=== PATIENT | female | born 1960 ===

== ENCOUNTER 2017-10-09 21:44 | Emergency (ER) | payer MEDICARE, OTHER ==
[2017-10-09 21:55] VITALS: BP 120/83; PULSE 97; RESP 18; TEMP 98.1; O2SAT 99
--- NOTE | 2017-10-09 22:48 | ED PDOC ---
Arrival/HPI - General Chief Complaint: Cough, Cold, Congestion Time Seen by Provider: 10/09/17 22:37 Historian: Patient - History of Present Illness Narrative History of Present Illness (Text): 10/09/17 22:43 Fabi Lua is a 57 year old female who presents to the Emergency department complaining of a persistent cough for the past 2 weeks. Patient was seen by her PMD for similar complaint, placed on Promethazine/Codeine cough syrup, and a Z-teddy, which she finished today. Patient states today she has been experiencing vomiting after coughing. Patient states she did not receive an influenza vaccine this year. Patient denies any fever, chills, wheezing, chest pain, shortness of breath, diarrhea, neck pain, headache, dizziness, or any other complaints. Symptom Onset: Gradual Symptom Course: Unchanged Activities at Onset: Light Context: Home Past Medical History - Provider Review Nursing Documentation Reviewed: Yes - Reproductive Menopause: Yes - Endocrine/Metabolic Hx Endocrine Disorders: Yes Hx Diabetes Mellitus Type 2: Yes - Musculoskeletal/Rheumatological Hx Musculoskeletal Disorders: Yes Hx Rheumatoid Arthritis: Yes - Psychiatric Hx Substance Use: No Family/Social History - Physician Review Nursing Documentation Reviewed: Yes Family/Social History: Unknown Family HX Smoking Status: Never Smoked Hx Alcohol Use: No Hx Substance Use: No Allergies/Home Meds Allergies/Adverse Reactions: Allergies No Known Allergies Allergy (Verified 10/09/17 21:50) Home Medications: Home Meds Medication Instructions Recorded Confirmed Azithromycin [Zithromax] 250 mg PO DAILY 10/09/17 10/09/17 Escitalopram [Lexapro] 20 mg PO DAILY 10/09/17 10/09/17 Promethazine/Codeine 10 ml PO Q8H PRN 10/09/17 10/09/17 [Codeine/Promethazine 10 MG/5 Ml-6.25 MG/5 Ml] metFORMIN [glucOPHAGE] 500 mg PO BID 10/09/17 10/09/17 Review of Systems - Physician Review All systems were reviewed & negative as marked: Yes - Review of Systems Constitutional: Normal. absent: Fevers Eyes: Normal ENT: Normal Respiratory: Cough, Sputum Cardiovascular: Normal. absent: Chest Pain Gastrointestinal: Vomiting. absent: Abdominal Pain, Diarrhea, Nausea Genitourinary Female: Normal. absent: Dysuria, Frequency, Hematuria, Urine Output Changes Musculoskeletal: Normal. absent: Back Pain, Neck Pain Skin: Normal. absent: Rash Neurological: Normal. absent: Headache, Dizziness Endocrine: Normal Hemo/Lymphatic: Normal Psychiatric: Normal Physical Exam Vital Signs Reviewed: Yes Vital Signs Temp Pulse Resp BP Pulse Ox 10/09/17 21:52 98.1 F 97 H 18 120/83 99 Temperature: Afebrile Blood Pressure: Normal Pulse: Regular Respiratory Rate: Normal Appearance: Positive for: Well-Appearing, Non-Toxic, Comfortable Pain Distress: None Mental Status: Positive for: Alert and Oriented X 3 - Systems Exam Head: Present: Atraumatic, Normocephalic Pupils: Present: PERRL Extroacular Muscles: Present: EOMI Conjunctiva: Present: Normal Ears: Present: Normal, NORMAL TM, Normal Canal. No: Erythema, TM Bulging, Fluid , TM Perf Mouth: Present: Moist Mucous Membranes Pharnyx: Present: Normal. No: ERYTHEMA, EXUDATE, TONSILS ENLARGED, Peritonsilar Swelling, Uvular Deviation, Muffled/Hoarse Voice, Strider, Soft Palate/Uvular Edema Nose (External): Present: Atraumatic Nose (Internal): Present: Normal Inspection Neck: Present: Normal Range of Motion. No: Meningeal Signs, MIDLINE TENDERNESS , Paraspinal Tenderness Respiratory/Chest: Present: Clear to Auscultation, Good Air Exchange. No: Respiratory Distress, Accessory Muscle Use Cardiovascular: Present: Regular Rate and Rhythm, Normal S1, S2. No: Murmurs Abdomen: Present: Normal Bowel Sounds. No: Tenderness, Distention, Peritoneal Signs Back: Present: Normal Inspection. No: CVA Tenderness, Midline Tenderness, Paraspinal Tenderness Upper Extremity: Present: Normal Inspection. No: Cyanosis, Edema Lower Extremity: Present: Normal Inspection. No: Edema Neurological: Present: GCS=15, CN II-XII Intact, Speech Normal Skin: Present: Warm, Dry, Normal Color. No: Rashes Psychiatric: Present: Alert, Oriented x 3, Normal Insight, Normal Concentration Medical Decision Making ED Course and Treatment: 10/09/17 22:43 Impression: 57 year old female complaining of cough for 2 weeks, vomiting after coughing today. Differential Diagnosis included but are not limited to: bronchitis vs. influenza vs. viral syndrome Plan: -- Chest X-ray -- Rapid influenza -- Reassess and disposition Progress Notes: 10/09/17 23:15 Chest X-ray reviewed, shows no acute processes. 10/10/17 00:38 On re-evaluation, patient feels better and is in no acute distress. I have discussed the results and plan with the patient, who expresses understanding. Patient in agreement with plan to be discharged home. Patient is stable for discharge. Patient was instructed to follow up with physician or return if symptoms worsen or new concerning symptoms arise. - Lab Interpretations Lab Results: Lab Results 10/09/17 23:00: Influenza Typ A,B (EIA) Negative for flu a/b I have reviewed the lab results: Yes - RAD Interpretation Radiology Orders: 10/09/17 22:50 CHEST TWO VIEWS (PA/LAT) [RAD] Stat Sales Representative Facility Services: ED Physician - Scribe Statement The provider has reviewed the documentation as recorded by the Fabrizio Ramires Provider Scribe Attestation: All medical record entries made by the Scribe were at my direction and personally dictated by me. I have reviewed the chart and agree that the record accurately reflects my personal performance of the history, physical exam, medical decision making, and the department course for this patient. I have also personally directed, reviewed, and agree with the discharge instructions and disposition. Disposition/Present on Arrival - Present on Arrival Any Indicators Present on Arrival: No History of DVT/PE: No History of Uncontrolled Diabetes: No Urinary Catheter: No History of Decub. Ulcer: No History Surgical Site Infection Following: None - Disposition Have Diagnosis and Disposition been Completed?: Yes Diagnosis: Bronchitis Disposition: HOME/ ROUTINE Disposition Time: 00:34 Patient Plan: Discharge Patient Problems: Current Active Problems Problem Status Onset Bronchitis Acute Condition: GOOD Discharge Instructions (ExitCare): Acute Bronchitis (ED) Additional Instructions: Stop prometh./codeine meds/take meds as prescribed/drink plenty of liquids/ follow up with your doctor this week Prescriptions: Amoxicillin/Clavulanate [Augmentin 875 MG-125 MG] 1 tab PO BID #14 tab Benzonatate [Tessalon Perles] 100 mg PO TID PRN #[id number] PRN Reason: Cough Referrals: [employer] Avelar Renoam, [Primary Care Provider] - Follow up with primary Forms: [facility] ([place])
--- NOTE | 2017-10-10 10:45 | RAD ---
HISTORY: cough COMPARISON: No prior. TECHNIQUE: Chest PA and lateral FINDINGS: LUNGS: Coarsened/ increased interstitial markings with few scattered peribronchial cuffing changes which appears somewhat more confluent in the right mid to lower lung field. Changes likely represent sequela of reactive/ inflammatory airway disease however developing right lower lobe infiltrate should be excluded with followup radiographs. Keymust be excluded with followup radiographs. PLEURA: No significant pleural effusion identified. No pneumothorax apparent. CARDIOVASCULAR: Normal. OSSEOUS STRUCTURES: No significant abnormalities. VISUALIZED UPPER ABDOMEN: Normal. OTHER FINDINGS: None. IMPRESSION: arsened/ increased interstitial markings with few scattered peribronchial cuffing changes which appears somewhat more confluent in the right mid to lower lung field. Changes likely represent sequela of reactive/ inflammatory airway disease however developing right lower lobe infiltrate should be excluded with followup radiographs. Keymust be excluded with followup radiographs. . Note that this report was placed in PA review folder for followup.
== END 2017-10-10 00:48 | disposition home or self-care (01) ==
LOC: MERGE 21:44 → ED 21:44
DX: J40 Bronchitis, not specified as acute or chronic (principal); E11.9 Type 2 diabetes mellitus without complications; M06.9 Rheumatoid arthritis, unspecified

== ENCOUNTER 2017-10-11 12:20 | Inpatient (IN) | payer MEDICARE, OTHER ==
[2017-10-11] MEDS ORDERED: Sodium Chloride 0.9% 1,000 ML IV STA ×2 (13:05→16:49)
[2017-10-11] MEDS ORDERED: Famotidine 20mg/50ml 20 MG/50 ML BAG IVPB STA (13:06)
--- NOTE | 2017-10-11 13:09 | ED PDOC ---
Arrival/HPI - General Chief Complaint: Flu-like Symptoms Time Seen by Provider: 10/11/17 13:02 Historian: Patient - History of Present Illness Narrative History of Present Illness (Text): 10/11/17 13:09 This 57 yo female with pmh anxiety, and DM 2 , presents to this Ed c/o cough x 14 days. Patient stated her symptoms worsen within last 3 days. Patient noted CP, chills, sore throat, TRISTAN last 2 days. Patient denies recent trauma, recent travel, sick contact, skin rash, or dizziness. Time/Duration: Other (2 weeks) Context: Home Past Medical History - Provider Review Nursing Documentation Reviewed: Yes - Cardiac Hx Cardiac Disorders: No - Pulmonary Hx Respiratory Disorders: No - Neurological Hx Neurological Disorder: No - HEENT Hx HEENT Disorder: No - Renal Hx Renal Disorder: No - Endocrine/Metabolic Hx Endocrine Disorders: Yes Hx Diabetes Mellitus Type 2: Yes - Hematological/Oncological Hx Blood Disorders: No - Integumentary Hx Dermatological Disorder: No - Musculoskeletal/Rheumatological Hx Musculoskeletal Disorders: Yes Hx Rheumatoid Arthritis: Yes - Gastrointestinal Hx Gastrointestinal Disorders: No - Genitourinary/Gynecological Hx Genitourinary Disorders: No - Psychiatric Hx Psychophysiologic Disorder: Yes Hx Anxiety: Yes Hx Substance Use: No - Surgical History Hx Tubal Ligation: Yes - Anesthesia Hx Anesthesia: Yes Hx Anesthesia Reactions: No Hx Malignant Hyperthermia: No - Suicidal Assessment Feels Threatened In Home Enviroment: No Family/Social History - Physician Review Nursing Documentation Reviewed: Yes Family/Social History: Other (noncontributory) Smoking Status: Never Smoked Hx Alcohol Use: No Hx Substance Use: No Allergies/Home Meds Allergies/Adverse Reactions: Allergies No Known Allergies Allergy (Verified 10/11/17 12:23) Home Medications: Home Meds Medication Instructions Recorded Confirmed metFORMIN [glucOPHAGE] 500 mg PO BID 10/09/17 10/11/17 Review of Systems - Review of Systems Constitutional: Other ((+) chills). absent: Fatigue, Weight Change, Fevers Eyes: Normal. absent: Photophobia ENT: Normal Respiratory: Cough. absent: SOB, Wheezing Cardiovascular: Chest Pain. absent: Palpitations, Edema, Calf Pain, PADRON, Orthopnea Gastrointestinal: Normal. absent: Abdominal Pain, Nausea, Vomiting Genitourinary Female: Normal. absent: Dysuria, Frequency, Hematuria Musculoskeletal: Normal Skin: Normal Neurological: Normal. absent: Headache, Dizziness, Focal Weakness, Gait Changes , Speech Changes, Facial Droop, Disequilibrium Endocrine: Normal Hemo/Lymphatic: Normal Psychiatric: Normal Physical Exam Vital Signs Temp Pulse Resp BP Pulse Ox 10/11/17 15:37 99.2 F 113 H 18 133/75 100 10/11/17 12:27 99.9 F H 128 H 18 135/89 100 Temperature: Febrile Blood Pressure: Normal Pulse: Tachycardic Respiratory Rate: Normal Appearance: Positive for: Well-Appearing, Non-Toxic, Comfortable Pain Distress: None Mental Status: Positive for: Alert and Oriented X 3 - Systems Exam Head: Present: Atraumatic, Normocephalic Pupils: Present: PERRL Extroacular Muscles: Present: EOMI Conjunctiva: Present: Normal Mouth: Present: Moist Mucous Membranes Neck: Present: Normal Range of Motion Respiratory/Chest: Present: Clear to Auscultation, Good Air Exchange. No: Respiratory Distress, Accessory Muscle Use, Wheezes, Rales, Retracting, Rhonchi Cardiovascular: Present: Regular Rate and Rhythm, Normal S1, S2. No: Murmurs Abdomen: Present: Normal Bowel Sounds. No: Tenderness, Distention, Peritoneal Signs, Rebound, Guarding Back: Present: Normal Inspection. No: CVA Tenderness Upper Extremity: Present: Normal Inspection, Normal ROM, NORMAL PULSES, Neurovascularly Intact, Capillary Refill < 2s. No: Cyanosis, Edema Lower Extremity: Present: Normal Inspection, Normal ROM, Capillary Refill < 2 s. No: Edema Neurological: Present: GCS=15, CN II-XII Intact, Speech Normal Skin: Present: Warm, Dry, Normal Color. No: Rashes Psychiatric: Present: Alert, Oriented x 3, Normal Insight, Normal Concentration Medical Decision Making ED Course and Treatment: 10/11/17 16:[address] Kris Polk who agrees reviewed labs, cxr, VS, and he agrees with plan for admission. Patient also agreed with admission Re-evaluation Time: 16:37 Reassessment Condition: Re-examined, Improving,but remains with symptoms - Lab Interpretations Lab Results: 10/11/17 14:45 10/11/17 14:45 Lab Results 10/11/17 16:43: pO2 76 H, VBG pH 7.40, VBG pCO2 41.0, VBG HCO3 25.4, VBG Total CO2 26.7, VBG O2 Sat (Calc) 97.8 H, VBG Base Excess 0.5, VBG Potassium 3.7, Glucose 131 H, Lactate 0.8, FiO2 21.0, Sodium 135.0, Chloride 104.0, Venous Blood Potassium 3.7 10/11/17 15:48: Influenza Typ A,B (EIA) Negative for flu a/b 10/11/17 14:45: Sodium 135, Potassium 4.0, Chloride 96 L, Carbon Dioxide 27, Anion Gap 16, BUN 10, Creatinine 0.6 L, Est GFR ( Amer) > 60, Est GFR ( Non-Af Amer) > 60, Random Glucose 144 H, Calcium 10.2, Magnesium 1.8, Total Bilirubin 0.8, AST 25, ALT 32, Alkaline Phosphatase 96, Lactate Dehydrogenase 426, Total Creatine Kinase 148, Troponin I < 0.01, NT-Pro-B Natriuret Pep 103, Total Protein 8.2, Albumin 4.3, Globulin 3.9, Albumin/Globulin Ratio 1.1 10/11/17 14:45: PT 13.7 H, INR 1.20 H, APTT 32.1 10/11/17 14:45: WBC 3.5 L, RBC 4.79, Hgb 13.7, Hct 41.3, MCV 86.2, MCH 28.6, MCHC 33.2, RDW 14.0, Plt Count 195, MPV 10.9, Gran % 65.8, Lymph % (Auto) 21.5 L , [place] % (Auto) 10.7 H, Eos % (Auto) 1.7, Baso % (Auto) 0.3, Gran # 2.33, Lymph # 0.8 L, [place] # 0.4, Eos # 0.1, Baso # 0.01 10/11/17 14:30: Urine Color Yellow, Urine Appearance Clear, Urine pH 7.0, Ur Specific [place] 1.020, Urine Protein Negative, Urine Glucose (UA) Negative, Urine Ketones 40 H, Urine Blood Negative, Urine Nitrate Negative, Urine Bilirubin Negative, Urine Urobilinogen 1.0 H, Ur Leukocyte Esterase Trace H, Urine RBC 0 - 2, Urine WBC 5 - 10, Ur Epithelial Cells 3 - 4, Urine Bacteria Many I have reviewed the lab results: Yes Interpretation: Abnormal lab values - RAD Interpretation Narrative RAD Interpretations (Text): 10/11/17 16:44 Chest x-rays: (+) RLL infiltrates Radiology Orders: 10/11/17 13:04 CHEST PORTABLE [RAD] Stat - EKG Interpretation Interpreted by ED Physician: Yes (Sinus Tachycardia @ 114 bpm. LBBB) Type: 12 lead EKG Comparison: No previous EKG avail. - Medication Orders Current Medication Orders: Sodium Chloride (Sodium Chloride 0.9%) 1,000 mls @ 999 mls/hr IV .Q1H1M STA Stop: 10/11/17 17:49 Discontinued Medications Acetaminophen (Tylenol 325mg Tab) 975 mg PO STAT STA Stop: 10/11/17 13:10 Last Admin: 10/11/17 14:56 Dose: 975 mg Famotidine (Pepcid 20mg/50ml Premix) 20 mg in 50 mls @ 100 mls/hr IVPB STAT STA Stop: 10/11/17 13:35 Last Admin: 10/11/17 14:56 Dose: 100 mls/hr eMAR Start Stop Document 10/11/17 14:56 HI (Rec: 10/11/17 14:56 HI [id number]) Intravenous Solution Start Date 10/11/17 Start Time 14:56 Sodium Chloride (Sodium Chloride 0.9%) 1,000 mls @ 999 mls/hr IV .Q1H1M STA Stop: 10/11/17 14:05 Last Admin: 10/11/17 14:56 Dose: 999 mls/hr eMAR Start Stop Document 10/11/17 14:56 HI (Rec: 10/11/17 14:56 HI [id number]) Intravenous Solution Start Date 10/11/17 Start Time 14:56 Ceftriaxone Sodium (Rocephin 1 Gram Ivpb) 1 gm in 100 mls @ 200 mls/hr IVPB STAT STA PRN Reason: Protocol Stop: 10/11/17 13:58 Last Admin: 10/11/17 14:55 Dose: 200 mls/hr eMAR Start Stop Document 10/11/17 14:55 HI (Rec: 10/11/17 14:55 [id number] Intravenous Solution Start Date 10/11/17 Start Time 14:55 Azithromycin (Zithromax 500mg In Ns) 500 mg in 250 mls @ 167 mls/hr IVPB STAT STA PRN Reason: Protocol Stop: 10/11/17 14:59 Ketorolac Tromethamine (Toradol) 15 mg IVP STAT STA Stop: 10/11/17 13:06 Last Admin: 10/11/17 14:55 Dose: 15 mg MAR Pain Assessment Document 10/11/17 14:55 HI (Rec: 10/11/17 14:55 [id number][facility] Pain Reassessment Is this a pain reassessment? No Location Pain Location Body Site Generalized IVP Administration Document 10/11/17 14:55 HI (Rec: 10/11/17 14:55 [id number][facility] Charges for Administration # of IVP Administrations 1 Disposition/Present on Arrival - Present on Arrival Any Indicators Present on Arrival: No History of DVT/PE: No History of Uncontrolled Diabetes: Yes Urinary Catheter: No History of Decub. Ulcer: No History Surgical Site Infection Following: None - Disposition Have Diagnosis and Disposition been Completed?: Yes Diagnosis: Pneumonia, Cystitis, Chest pain Disposition: HOSPITALIZED Disposition Time: 16:46 Patient Plan: Admission Patient Problems: Current Active Problems Problem Status Onset Pneumonia Acute Cystitis Acute Condition: STABLE Discharge Instructions (ExitCare): Chest Pain (ED) Referrals: Giancarlo Choi MD [Primary Care Provider] - Follow up with primary Forms: [employer] ([place])
[2017-10-11] MEDS ORDERED: cefTRIAXone 1 gm 1 GM/100 ML BAG IVPB STA (13:29)
[2017-10-11] MEDS ORDERED: Azithromycin 500MG/NS 250ml 500 MG/250 ML BAG IVPB STA (13:30)
[2017-10-11 14:38] LABS: URINE BILIRUBIN NEGATIVE (NEGATIVE); URINE BLOOD NEGATIVE (NEGATIVE); URINE GLUCOSE (UA) NEGATIVE (NEGATIVE); URINE LEUKOCYTE ESTERASE TRACE Leu/uL (NEGATIVE); URINE NITRATE NEGATIVE (NEGATIVE); URINE PROTEIN NEGATIVE mg/dL (<30 mg/dL)
[2017-10-11 14:41] LABS: URINE APPEARANCE CLEAR (CLEAR); URINE COLOR YELLOW (YELLOW)
[2017-10-11 14:47] LABS: URINE BACTERIA MANY (NEG); URINE RBC 0 - 2 /hpf (0-2)
[2017-10-11 15:14] LABS: BASO # 0.01 K/mm3 (0.0-2.0); BASO % 0.3 % (0.0-3.0); EOS # 0.1 (0.0-0.7); EOS % 1.7 % (1.5-5.0); GRAN # 2.33 (1.4-6.5); GRAN % 65.8 % (50.0-68.0); HEMOGLOBIN 13.7 g/dL (12.0-16.0); LYMPH # 0.8 (1.2-3.4); LYMPH % 21.5 % (22.0-35.0); MEAN CELL VOLUME 86.2 fl (80.0-105.0); MEAN CORPUSCULAR HEMOGLOBIN 28.6 pg (25.0-35.0); MEAN CORPUSCULAR HGB CONC 33.2 g/dl (31.0-37.0); MEAN PLATELET VOLUME 10.9 fl (7.0-11.0); MONO # 0.4 (0.1-0.6); MONO % 10.7 % (1.0-6.0); RBC 4.79 10^6/uL (3.5-6.1); WHITE BLOOD COUNT 3.5 10^3/ul (4.5-11.0)
[2017-10-11 15:23] LABS: INR 1.2 (0.93-1.08); PARTIAL THROMBOPLASTIN TIME 32.1 Seconds (25.1-36.5); PROTHROMBIN TIME 13.7 SECONDS (9.4-12.5)
[2017-10-11 15:36] LABS: TROPONIN I < 0.01 ng/mL
[2017-10-11 15:56] LABS: ALB/GLOB RATIO 1.1 (1.1-1.8); ALBUMIN 4.3 g/dL (3.0-4.8); ALT/SGPT 32 U/L (7-56); AST/SGOT 25 U/L (14-36); B-TYPE NATRIURETIC PEPTIDE 103 pg/mL (0-450); BLOOD UREA NITROGEN 10 mg/dL (7-21); CALCIUM 10.2 mg/dL (8.4-10.5); GFR AFRICAN-AMERICAN > 60; GFR NON-AFRICAN AMERICAN > 60; MAGNESIUM 1.8 mg/dL (1.7-2.2)
[2017-10-11 16:52] LABS: VENOUS BLOOD GAS BASE EXCESS 0.5 mmol/L (0.0-2.0); VENOUS BLOOD GAS PO2 76 mm/Hg (30-55)
--- NOTE | 2017-10-11 16:53 | RAD ---
HISTORY: Chest pain COMPARISON: 10/09/2017 FINDINGS: LUNGS: The lungs are well inflated. Again seen is ill-defined confluent airspace disease in the right lower lobe. The left lung is clear. PLEURA: No significant pleural effusion identified, no pneumothorax apparent. CARDIOVASCULAR: Normal. OSSEOUS STRUCTURES: No significant abnormalities. VISUALIZED UPPER ABDOMEN: Normal. OTHER FINDINGS: None. IMPRESSION: Suspect right lower lobe pneumonia. Follow-up after medical management is recommended to ensure complete resolution.
--- NOTE | 2017-10-11 17:52 | CARD ---
APPROVED REPORT EKG Measurement Heart [id number] <Conclusion> Sinus tachycardia Biatrial enlargement Left bundle branch block Abnormal ECG
[2017-10-11] MEDS ORDERED: Levalbuterol 0.63 MG/3 ML Inhal Soln UD IH PRN (17:57)
[2017-10-11] MEDS: Sodium Chloride 0.45% 1,000 ML IV SCH (19:47)
--- NOTE | 2017-10-11 19:49 | HP ---
HISTORY OF PRESENT ILLNESS: I was called down to the emergency room today to see her. She is a 57-year-old female who presents with cough for 14 days, it worsened over the past 3 days. She took [id number] medications, which did not seem to help. No trauma. No sick contacts. Now, she is getting short of breath. PAST MEDICAL HISTORY: Diabetes. This is the first time she ever had pneumonia. She has arthritis, a little anxiety. PAST SURGICAL HISTORY: She has a history of tubal ligation. FAMILY HISTORY: Diabetes in the family. SOCIAL HISTORY: Never smoked. No alcohol. No drugs. ALLERGIES: NO KNOWN DRUG ALLERGIES. MEDICATIONS: She takes metformin 500 twice a day, I will put her back on the medication. REVIEW OF SYSTEMS: She is having chills, a little bit tired. No vision or hearing changes. No sore throat. There is a cough. She is a little short of breath. There is some chest pain also, also some palpitations. No nausea, vomiting, constipation, diarrhea. No problems urinating. No skin issues. No headaches or dizziness. Her skin for the most part is intact. No anxiety at this time. PHYSICAL EXAMINATION: VITAL SIGNS: She has a 99.9 temp, 128 pulse, 18 respiratory rate, 135/89 blood pressure, 100% O2 sat on oxygen. GENERAL: She is well appearing at this time after getting some antibiotics. She is on oxygen. She is alert and oriented x3. She is tachycardic, a little nervous. HEENT: Extraocular muscles are intact. Pupils equal and react to light. Head is atraumatic, normocephalic. Mucous membranes are moist. NECK: Supple. HEART: Regular rate. Normal S1, S2. LUNGS: Decreased breath sounds bilaterally. Coarse breath sounds in the bases. If you make her cough, you can hear some congestion, thick. ABDOMEN: Soft, nontender. Positive bowel sounds. No guarding, no rebound, no CVA tenderness. EXTREMITIES: Have no edema. NEUROLOGICAL: Cranial nerves II through XII grossly intact. GCS is 15. Alert and oriented x3. SKIN: For the most part is intact, I do not see any rashes or ulcers appreciated. LYMPHATICS: Thyroid midline. No palpable appreciable lymphadenopathy. LABORATORY DATA: She has a 3.5 white count, 13.7 hemoglobin, 41.3 hematocrit with 195 platelets. INR is 1.2. Blood gas lactate was 0.8. She has 135 sodium, potassium 4, BUN is 10, creatinine 0.6, GFR is greater than 60, sugar is 144, calcium 10.2, magnesium 1.8, total bili is 0.8, AST is 25, ALT is 32, alk phos 96, lactate dehydrogenase is 426, troponin I is less than 0.01. BNP is 103, total protein is 8.2, albumin is 4.3. Urine, she has many bacteria in the urine, she has urinary tract infection with 40 ketones, negative for the flu. ASSESSMENT AND PLAN: Chest x-ray showed right lower lobe pneumonia. She is also a diabetic. She is tachycardic. We will consult pulmonary and cardiology. She was given Rocephin, ceftriaxone, IV fluids, I will give her some of her metformin twice a day, insulin coverage, oxygen, check her troponins, she might need some metoprolol, pulse has not come down. Kris Polk DO
[2017-10-11] MEDS: Insulin Reg-HIGH-Coverage SC SCH (21:35)
[2017-10-12 04:36] VITALS: BMI 23.3
[2017-10-12 07:13] LABS: HEMOGLOBIN 12.2 g/dL (12.0-16.0); MEAN CELL VOLUME 86.2 fl (80.0-105.0); MEAN CORPUSCULAR HEMOGLOBIN 27.6 pg (25.0-35.0); RBC 4.42 10^6/uL (3.5-6.1); RED CELL DISTRIBUTION WIDTH 14.4 % (11.5-14.5)
[2017-10-12 07:35] LABS: WHITE BLOOD COUNT 2.7 10^3/ul (4.5-11.0)
[2017-10-12 07:57] LABS: ALBUMIN 3.5 g/dL (3.0-4.8); ALT/SGPT 33 U/L (7-56); AST/SGOT 31 U/L (14-36); BLOOD UREA NITROGEN 7 mg/dL (7-21); CALCIUM 9.2 mg/dL (8.4-10.5); GFR AFRICAN-AMERICAN > 60; GFR NON-AFRICAN AMERICAN > 60
--- NOTE | 2017-10-12 07:58 | CON ---
DATE: 10/12/2017 PULMONARY CONSULTATION REASON FOR CONSULTATION: Pneumonia. REFERRING PHYSICIAN: Dr. Kris Polk. HISTORY OF PRESENT ILLNESS: The patient is a 57-year-old female, with past medical history significant for diabetes mellitus, who presents to [facility] with a 1-week history of increasing shortness of breath at rest, dyspnea on exertion, cough, and minimal sputum production. There is no history of chest pain, coughing up of blood, or chest pain - made worse with deep respirations. The patient did present to the emergency room with low grade fevers. No history of chills or infectious exposure. No history of night sweats, weight loss or appetite change prior to the above events. No history of leg or calf pains. No history of syncope or diaphoresis. No history of recent travel or trauma. REVIEW OF SYSTEMS: No history of nausea, vomiting or diarrhea. No acute urinary symptoms. No new neurologic or musculoskeletal complaints. Rest of the review of systems negative. ALLERGIES: NO KNOWN ALLERGIES. SOCIAL HISTORY: Negative for tobacco and negative for alcohol. FAMILY HISTORY: No inheritable diseases. HOME MEDICATIONS: Include Glucophage. PHYSICAL EXAMINATION: GENERAL: The patient appears comfortable at rest. She is not short of breath. VITAL SIGNS: Last temperature recorded is 100.3, pulse this morning is 88, respirations 18, blood pressure 134/94. Oxygen saturation on room air is 100%. HEENT: Normocephalic, atraumatic. NECK: No JVD. CARDIOVASCULAR: Positive S1, S2. No S3 gallop. LUNGS: Crackles noted at the right base. Minimal bilateral rhonchi are noted. EXTREMITIES; No clubbing, cyanosis or edema. Calves are nontender to palpation. GI: Abdomen is soft, nontender and nondistended. Bowel sounds are positive. SKIN: No acute rash. NEUROLOGIC: Exam limited at the present time. PERTINENT LABORATORY DATA: Chest x-ray was done yesterday and reviewed. There is a small patchy infiltrate noted at the right base. The left lung is clear. CBC: White count 3.5, hemoglobin 13.7, hematocrit 41.3, platelets of 195,000. Complete metabolic profile: Chloride 96, creatinine 0.6, glucose 144. Rest of the metabolic profiles within normal limits. IMPRESSION: 1. Right lower lobe pneumonia. 2. Acute bronchitis. 3. Acute bronchospasm. 4. Diabetes mellitus. PLAN: The patient presents to [facility] with a 1-week history of worsening pulmonary symptoms. As above, she also presented with low grade fevers. I did review the chest x-ray as above. The chest x-ray shows a small patchy infiltrate noted at the right base. May cultures have been ordered and will be analyzed when feasible. The patient has been started on appropriate antibiotic therapy. On physical exam, the patient is in [id number] bronchospasm. I will continue with the current nebulizer treatments and add inhaled Pulmicort. I will also add low-dose intravenous steroids this morning. The patient's main complaint is cough. Repeat a.m. labs are pending. The patient does feel better this morning, and is clinically improved. Additional pulmonary intervention will be based on the clinical status of the patient. I did discuss the above with Dr. Polk at length. Thank you very much for this pulmonary consultation. Agustín Matos MD [facility]
[2017-10-12] MEDS: Levalbuterol 0.63 MG/3 ML Inhal Soln UD IH SCH ×3 (08:23→20:28)
[2017-10-12] MEDS: Budesonide 0.5 mg/2 ml Inhal Susp UD IH SCH ×2 (08:23→20:28)
[2017-10-12] MEDS: Insulin Reg-HIGH-Coverage SC SCH ×4 (08:27→21:22)
[2017-10-12] MEDS: MethylPREDNISolone 40 mg Vial IVP SCH ×2 (09:24→21:26)
[2017-10-12] MEDS: Azithromycin 500MG/NS 250ml 500 MG/250 ML BAG IVPB SCH (09:26)
[2017-10-12] MEDS: cefTRIAXone 1 gm 1 GM/100 ML BAG IVPB SCH (09:27)
--- NOTE | 2017-10-12 10:13 | PN ---
DATE: SUBJECTIVE: I saw her in the emergency room last night. She is in for a right lower lobe pneumonia. She is coughing a lot not much better yet. She has got oxygen ordered, Xopenex ordered as a cough medicine. She is on Rocephin and azithromycin. The protective signal installer helper who I spoke this morning added a Pulmicort inhaler and some Solu-Medrol 30. We will keep an eye on her diabetes. She is on insulin coverage. PHYSICAL EXAMINATION: VITAL SIGNS: She has a 100.3 temp, 101 pulse, 134/94 blood pressure, 18 respiratory rate and 100% sat on oxygen. HEENT: Head is atraumatic, normocephalic. Throat is moist. NECK: Supple. HEART: Regular rate. LUNGS: Congested, right worse than left. ABDOMEN: Soft. EXTREMITIES: No edema. LABORATORY DATA: She has a 2.7 white count, 12.2 hemoglobin, 38.1 hematocrit with a 170 platelets. Not sure why the white count went down, will get hematology involved. Also going to review her blood pressure medications. She has a 135 sodium, potassium is 4. Last blood sugar was 122. Kidneys with BUN 10, creatinine 0.6, GFR is greater than 60. Liver functions are good. All three troponins are negative. There is also UTI. She has many bacteria, will need antibiotics for that. PLAN: She is just definitely not better yet. Continue with aggressive treatment and care with antibiotics. Pulmonary treatment. We will check her labs tomorrow, adjusting medication. Kris Polk DO
[2017-10-12] MEDS: Promethazine DM 6.25 mg-15 mg/5 ml Syrup PO PRN ×2 (13:27→21:26)
--- NOTE | 2017-10-12 15:30 | CON ---
DATE: 10/12/2017 CARDIOLOGY CONSULTATION HISTORY OF PRESENT ILLNESS: The patient is a 57-year-old woman who presented with cough associated with chest pain with sore throat and rhinitis. PAST MEDICAL HISTORY: Notable for diabetes mellitus. No previous cardiac history is noted. The patient denies chest pain now. Negative history of hypertension. No anginal symptoms. SOCIAL HISTORY: The patient does not smoke. REVIEW OF SYSTEMS: Reviewed in detail. No cardiac symptomatology is noted. PHYSICAL EXAMINATION: VITAL SIGNS: Blood pressure is 138/85 and temperature is 101.3. NECK: Negative JVD. LUNGS: Without rales. HEART: S1 and S2. EXTREMITIES: Without edema. DIAGNOSTIC STUDIES: EKG shows normal sinus rhythm with left bundle-branch block. LABORATORY DATA: Troponins are negative x2. Glucose is 137. Hemoglobin is 12.2 with white count of 2.7. IMPRESSION: 1. Upper respiratory infection. 2. Chest pain, associated with cough. 3. No evidence for acute coronary syndrome. 4. Diabetes mellitus. 5. Abnormal EKG. PLAN: Given these findings, there is no active cardiac issue at this time. Her chest pain is likely due to musculoskeletal from her coughing. After resolution of her upper respiratory infection, the patient's risk factors, which include diabetes mellitus, we would want that the patient undergo screening for coronary artery disease, which can be done as an outpatient. Ronal Rasheed MD
--- NOTE | 2017-10-12 16:16 | CON ---
DATE: HEMATOLOGY CONSULTATION HISTORY OF PRESENT ILLNESS: This is a 57-year-old woman who is admitted for pneumonia and has a low white count. The patient states she takes metformin and she has always been pretty healthy, has not been in the hospital in many years. She says that in the last 2 weeks, she has been having increasing shortness of breath and cough, initially dry cough, but eventually became a yellow with cyclic cough and she came to emergency room for this. PHYSICAL EXAMINATION SKIN: No petechiae, no bruises. HEENT: Anicteric, no mucosal lesions noted. NODES: Nonpalpable in the axillary, cervical, supraclavicular or inguinal regions. LUNGS: Showed some scattered wheezing bilaterally that clear on cough. HEART: S1 and S2. ABDOMEN: Shows no liver, no spleen, no tenderness, no rebound, no ascites. EXTREMITIES: No edema. CENTRAL NERVOUS SYSTEM: No focal finding. LABORATORY DATA: The white count initially on admission yesterday was around 3.5, went down to 2.7 today. Peripheral smear shows no abnormal polys, no abnormal lymphs, no Elizabeth cells, no Foster cells, no fragmented helmet cells and there are some monocytes seen. On peripheral smear on the computer, patient has got 12% monocytes yesterday. My suspicion is that she has a mixed picture of viral infection that was initiated and the viral infection can cause low white count. Preexisting on top of that, she probably has this pneumonia and they have seen on the x-ray early on, so I think she had an earlier viral syndrome followed by the acute bacterial infection and of course she had a low white count. Now her hemoglobin is normal, the platelet count is normal, the cells themselves look normal and the number of polys was acceptable. So at this point, I will just continue to observe her while she is on the antibiotics. No Neupogen needed. No other medicines at this point. Andrae Champion MD
[2017-10-12] MEDS: Sodium Chloride 0.45% 1,000 ML IV SCH (21:29)
[2017-10-13 07:00] LABS: HEMOGLOBIN 12.5 g/dL (12.0-16.0); MEAN CELL VOLUME 84.2 fl (80.0-105.0); MEAN CORPUSCULAR HEMOGLOBIN 27.8 pg (25.0-35.0); MEAN PLATELET VOLUME 11.3 fl (7.0-11.0); RBC 4.5 10^6/uL (3.5-6.1); RED CELL DISTRIBUTION WIDTH 14.3 % (11.5-14.5); WHITE BLOOD COUNT 3.3 10^3/ul (4.5-11.0)
[2017-10-13] MEDS: Budesonide 0.5 mg/2 ml Inhal Susp UD IH SCH ×2 (07:21→20:40)
[2017-10-13] MEDS: Levalbuterol 0.63 MG/3 ML Inhal Soln UD IH SCH ×3 (07:21→20:40)
[2017-10-13 07:30] LABS: ALBUMIN 3.9 g/dL (3.0-4.8); ALT/SGPT 36 U/L (7-56); AST/SGOT 28 U/L (14-36); BLOOD UREA NITROGEN 9 mg/dL (7-21); CALCIUM 10.1 mg/dL (8.4-10.5); GFR AFRICAN-AMERICAN > 60; GFR NON-AFRICAN AMERICAN > 60
--- NOTE | 2017-10-13 08:03 | PN ---
DATE: 10/13/2017 PULMONARY PROGRESS NOTE SUBJECTIVE: The patient appears very comfortable this morning. She is not short of breath at rest. PHYSICAL EXAMINATION: VITAL SIGNS: Temperature is 98.5, pulse is 80, respirations are 18, and blood pressure is 108/68. Oxygen saturation on room air is 98%. HEENT: Normocephalic and atraumatic. NECK: No JVD. CARDIOVASCULAR: Positive S1 and S2. No S3 gallop. LUNGS: Crackles noted at the right base. Much less/minimal rhonchi. No wheezing. EXTREMITIES: No clubbing, cyanosis or edema. Calves are nontender to palpation. GASTROINTESTINAL: Abdomen is soft, nontender and nondistended. Bowel sounds are positive. SKIN: No acute rash. NEUROLOGIC: Exam is limited at the present time. IMPRESSION 1. Right lower lobe pneumonia. 2. Acute bronchitis. 3. Acute bronchospasm. 4. Diabetes mellitus. PLAN: The patient appears very comfortable this morning. She is not short of breath at rest. She does state to feeling much better overall. On physical exam, her bronchospasm is certainly less. In addition, the oxygen saturation on room air is now 98%. I will continue the current nebulizer treatments and decrease the intravenous steroids this morning. I would continue with the current antibiotic therapy. The temperatures have now fully resolved. Repeat a.m. labs are pending. Clinical status for the patient is significantly improved. I will discuss the above with Dr. Polk. Agustín Matos MD MTDD
[2017-10-13] MEDS: Insulin Reg-HIGH-Coverage SC SCH ×4 (10:30→21:53)
[2017-10-13] MEDS: Azithromycin 500MG/NS 250ml 500 MG/250 ML BAG IVPB SCH (10:34)
[2017-10-13] MEDS: MethylPREDNISolone 40 mg Vial IVP SCH ×2 (10:35→21:55)
--- NOTE | 2017-10-13 12:14 | PN ---
DATE: 10/13/2017 CARDIOLOGY FOLLOWUP SUBJECTIVE: The patient is asymptomatic. PHYSICAL EXAMINATION: VITAL SIGNS: Blood pressure is 130/85, heart rate in the 80s. NECK: Negative JVD. LUNGS: Without rales. HEART: With S1, S2. EXTREMITIES: Without edema. LABORATORY DATA: Includes a white count of 3.3. Chemistries: BUN and creatinine are unremarkable. Glucose is 202. IMPRESSION: 1. Upper respiratory infection. 2. Pneumonia. 3. Pleuritic chest pain. 4. No evidence for acute coronary syndrome. 5. Diabetes mellitus. 6. Abnormal EKG. PLAN: Given these findings, the patient's cardiac status is stable. Given her abnormal EKG and diabetes, I have discussed with her about the need for cardiac investigation after her pneumonia and upper respiratory infections have all resolved. Ronal Rasheed MD
[2017-10-13] MEDS: cefTRIAXone 1 gm 1 GM/100 ML BAG IVPB SCH (12:16)
--- NOTE | 2017-10-13 14:49 | PN ---
DATE: SUBJECTIVE: I saw the Fabi sitting out of bed to chair. We had a long discussion. She is doing much better. She is seen by Hematology, Pulmonology and Cardiology. I discussed that Hematology said that the labs are okay and about it and that Cardiology was happy with the heart. Pulse is resolving and Pulmonary decreased the steroids and hopefully tomorrow, we can discharge her. She is eating better, breathing better. No shortness of breath anymore. PHYSICAL EXAMINATION VITAL SIGNS: She has a 98.5 temperature, 75 pulse, 119/81 blood pressure, 20 respiratory rate, and 97% O2 saturation on room air. HEENT: Head is atraumatic, normocephalic. HEART: Regular rate. LUNGS: Really clear to auscultation bilaterally. ABDOMEN: Soft. EXTREMITIES: No edema. LABORATORY DATA: She has a 3.3 white count, 12.5 hemoglobin, 37.9 hematocrit, with a 182 platelets. She has a 140 sodium, potassium 4.2, BUN 9, creatinine 0.6, GFR greater than 60, last blood sugar was 278 from steroids, calcium is 10.1, total bilirubin is 0.4, AST is 20, ALT 36, alk phos 71, total protein 7.7. Urine with many bacteria. Influenza was negative. MEDICATIONS: She is currently on Glucophage, insulin coverage, cough medicine, Pulmicort, Rocephin, IV fluids, Solu-Medrol 20 mg, Tylenol, Xopenex, Zestril and azithromycin. ASSESSMENT AND PLAN: She was here for right lower lobe pneumonia, urinary tract infection, hypertension, tachycardia, acute bronchitis, and diabetes. I will check her labs in the morning. Discussed the situation on the consult, answered questions, and I am hoping to discharge her tomorrow if she does continue to improve. Kris Polk DO MTDD
[2017-10-13] MEDS: Sodium Chloride 0.45% 1,000 ML IV SCH (18:21)
[2017-10-14] MEDS: Budesonide 0.5 mg/2 ml Inhal Susp UD IH SCH (07:35)
[2017-10-14] MEDS: Levalbuterol 0.63 MG/3 ML Inhal Soln UD IH SCH (07:35)
[2017-10-14 08:00] LABS: MEAN CELL VOLUME 84.2 fl (80.0-105.0); MEAN CORPUSCULAR HEMOGLOBIN 27.4 pg (25.0-35.0); MEAN CORPUSCULAR HGB CONC 32.5 g/dl (31.0-37.0); MEAN PLATELET VOLUME 11.4 fl (7.0-11.0); RBC 4.38 10^6/uL (3.5-6.1); RED CELL DISTRIBUTION WIDTH 14.3 % (11.5-14.5); WHITE BLOOD COUNT 4.4 10^3/ul (4.5-11.0)
[2017-10-14 08:04] VITALS: BP 146/99; PULSE 63; RESP 16; TEMP 97.8; O2SAT 96
[2017-10-14] MEDS: Insulin Reg-HIGH-Coverage SC SCH (08:13)
--- NOTE | 2017-10-14 08:14 | PN ---
DATE: 10/14/2017 PULMONARY PROGRESS NOTE SUBJECTIVE: The patient appears very comfortable this morning. She is not short of breath at rest. She states she is feeling much better overall. PHYSICAL EXAMINATION: VITAL SIGNS: Last temperature recorded is 98.4, pulse this morning is 80, respirations are 16/18, and blood pressure is 126/86. Oxygen saturation on room air is 98%. HEENT: Normocephalic and atraumatic. NECK: No JVD. CARDIOVASCULAR: Positive S1 and S2. No S3 gallop. LUNGS: Less crackles noted at the right base. No rhonchi or wheezing this morning. EXTREMITIES: No clubbing, cyanosis or edema. Calves are nontender to palpation. GASTROINTESTINAL: Abdomen is soft, nontender and nondistended. Bowel sounds are positive. SKIN: No acute rash. NEUROLOGIC: Exam is limited at the present time. IMPRESSION 1. Right lower lobe pneumonia. 2. Acute bronchitis. 3. Acute bronchospasm. 4. Diabetes mellitus. PLAN: The patient appears very comfortable this morning. She is not short of breath at rest. She does state to feeling much much better overall. On physical exam, her bronchospasm continues to resolve. In addition, the oxygen saturation on room air is now 98%. I will continue the current nebulizer treatments and change to oral steroids this morning. Blood cultures remain negative after 48 hours. The patient remains on antibiotic therapy. Her temperatures have fully resolved. Clinical status of the patient is significantly improved. I will discuss the above with Dr. Polk this morning. Agustín Matos MD [facility]
[2017-10-14 08:28] LABS: ALBUMIN 3.5 g/dL (3.0-4.8); ALT/SGPT 36 U/L (7-56); AST/SGOT 33 U/L (14-36); BLOOD UREA NITROGEN 10 mg/dL (7-21); CALCIUM 9.5 mg/dL (8.4-10.5); GFR AFRICAN-AMERICAN > 60; GFR NON-AFRICAN AMERICAN > 60
[2017-10-14] MEDS: cefTRIAXone 1 gm 1 GM/100 ML BAG IVPB SCH (10:03)
--- NOTE | 2017-10-15 08:16 | DS ---
HISTORY OF PRESENT ILLNESS: I saw Fabi sitting up in bed. She is resting comfortably. She is feeling well. She is coughing a little bit, but not as bad. Breathing better, more energy, wants to go home today. She said the Shell Mold Bonding Machine Operator said she can go home today. PHYSICAL EXAMINATION: VITAL SIGNS: She has a 97.8 temperature, 63 pulse, blood pressure did go up from 126/86 to 146/99. We will increase the Zestril for 5 mg to 20 mg. She has a 16 respiratory rate, 96% O2 sat to 98% O2 sat. HEENT: Head is atraumatic, normocephalic. Throat is moist. NECK: Supple. HEART: Regular rate. LUNGS: Decreased breath sounds, but clear, less congestion. ABDOMEN: Soft. EXTREMITIES: No edema. MEDICATIONS: She is going to be go home on her Glucophage, Phenergan DM, prednisone 30 for 3 days, 20 for 3 days, 10 for 2 days and stop Pulmicort inhaler twice a day. She will be on Vantin 200 mg twice a day for 5 more days. She will have Xopenex inhaler every 6 hours, Zestril increased to 20 mg because her blood pressure went up. LABORATORY DATA: She has 4.4 white count, better; 12 hemoglobin; 36 hematocrit with 171 platelets. Sodium 138, potassium 4, BUN 10, creatinine 0.6, GFR is greater than 60, sugar is 142, calcium is 9.5, total bilirubin is 0.3, AST is 33, ALT is 36, alkaline phosphatase is 66. Total protein is 7.1. She had many bacteria in the urine. She was seen by Pulmonology and Cardiology. She has pneumonia, right lower lobe, UTI, hypertension, tachycardia, diabetes. Will be seen in the office in about a week. Kris Polk DO
== END 2017-10-14 12:59 | disposition home or self-care (01) | DRG 194 ==
LOC: ED 12:20 → ERH 16:46 → 5RNO 18:37
PROVIDERS: ADMIT Family Medicine; ATTEND Family Medicine
DX: J18.9 Pneumonia, unspecified organism (principal); N39.0 Urinary tract infection, site not specified; E11.9 Type 2 diabetes mellitus without complications; J20.9 Acute bronchitis, unspecified; J06.9 Acute upper respiratory infection, unspecified; I10 Essential (primary) hypertension; R00.0 Tachycardia, unspecified; R94.31 Abnormal electrocardiogram [ECG] [EKG]; Z79.84 Long term (current) use of oral hypoglycemic drugs

== ENCOUNTER 2017-12-13 18:17 | Inpatient (IN) | payer MEDICARE, OTHER ==
[2017-12-13 19:34] VITALS: BMI 20.7
[2017-12-13] MEDS ORDERED: levoFLOXacin 750 mg in D5W 750 MG/150 ML BAG IVPB STA (20:01)
[2017-12-13 20:45] LABS: BASO # 0.02 K/mm3 (0.0-2.0); BASO % 0.3 % (0.0-3.0); EOS # 0.4 (0.0-0.7); EOS % 6.3 % (1.5-5.0); GRAN # 3.98 (1.4-6.5); GRAN % 60.1 % (50.0-68.0); HEMOGLOBIN 12.8 g/dL (12.0-16.0); LYMPH # 1.7 (1.2-3.4); LYMPH % 25.8 % (22.0-35.0); MEAN CELL VOLUME 82.8 fl (80.0-105.0); MEAN CORPUSCULAR HEMOGLOBIN 27.6 pg (25.0-35.0); MEAN CORPUSCULAR HGB CONC 33.3 g/dl (31.0-37.0); MEAN PLATELET VOLUME 9.3 fl (7.0-11.0); MONO # 0.5 (0.1-0.6); MONO % 7.5 % (1.0-6.0); RBC 4.64 10^6/uL (3.5-6.1); RED CELL DISTRIBUTION WIDTH 14.7 % (11.5-14.5); WHITE BLOOD COUNT 6.6 10^3/ul (4.5-11.0)
--- NOTE | 2017-12-13 20:48 | ED PDOC ---
Arrival/HPI - General Chief Complaint: Medical Clearance Time Seen by Provider: 12/13/17 19:50 Historian: Patient - History of Present Illness Narrative History of Present Illness (Text): 12/13/17 20:49 57 yo F presents for admission to the hospital, as advised by her pmd. Reports a cough for several weeks. She states that she had an outpatient CXR yesterday and was told by her pmd her pneumonia did not improve. Patient states that she had pneumonia in September and was admitted at that time in this hospital. Denies any fever, chills, SOB, N/V. Past Medical History - Provider Review Nursing Documentation Reviewed: Yes - Infectious Disease Hx of Infectious Diseases: None - Cardiac Hx Cardiac Disorders: No - Pulmonary Hx Pneumonia: Yes - Neurological Hx Neurological Disorder: No - HEENT Hx HEENT Disorder: No - Renal Hx Renal Disorder: No - Endocrine/Metabolic Hx Endocrine Disorders: Yes Hx Diabetes Mellitus Type 2: Yes - Hematological/Oncological Hx Blood Disorders: No - Integumentary Hx Dermatological Disorder: No - Musculoskeletal/Rheumatological Hx Musculoskeletal Disorders: Yes Hx Falls: No - Gastrointestinal Hx Gastrointestinal Disorders: No - Genitourinary/Gynecological Hx Genitourinary Disorders: No - Psychiatric Hx Psychophysiologic Disorder: Yes Hx Anxiety: Yes Hx Substance Use: No - Surgical History Hx Tubal Ligation: Yes - Anesthesia Hx Anesthesia: Yes Hx Anesthesia Reactions: No Hx Malignant Hyperthermia: No - Suicidal Assessment Feels Threatened In Home Enviroment: No Family/Social History Family/Social History: No Known Family HX Smoking Status: Never Smoked Hx Alcohol Use: No Hx Substance Use: No Allergies/Home Meds Allergies/Adverse Reactions: Allergies No Known Allergies Allergy (Verified 10/11/17 12:23) Home Medications: Home Meds Medication Instructions Recorded Confirmed metFORMIN [glucOPHAGE] 500 mg PO BID 10/09/17 10/11/17 Review of Systems - Review of Systems Constitutional: absent: Fatigue, Weight Change, Fevers Respiratory: Cough. absent: SOB, Sputum, Wheezing Cardiovascular: absent: Chest Pain, Palpitations, Edema Gastrointestinal: absent: Abdominal Pain, Diarrhea, Vomiting Musculoskeletal: absent: Arthralgias, Back Pain, Neck Pain Skin: absent: Rash, Pruritis, Skin Lesions Physical Exam - Physical Exam Narrative Physical Exam (Text): 12/13/17 20:48 GENERAL APPEARANCE: Patient is awake, alert, oriented x 3, in no acute distress. Speaking in full sentences, breathing is easy and unlabored. SKIN: Warm, dry; (-) cyanosis, (-) rash. (-) Decubitus Ulcer EYES: (-) conjunctival pallor, (-) scleral icterus, (-) conjunctival hemorrhage. ENMT: Mucous membranes moist. TMs: (-) erythema. Airway patent: (-) stridor. Pharynx: (-) erythema, (-) exudate. NECK: (-) tenderness, (-) stiffness, (-) meningismus, (-) lymphadenopathy. CHEST AND RESPIRATORY: (-) accessory muscle use. Lungs: (-) rales, (-) rhonchi, (-) wheezes, (-) rub; (+) decreased breath sounds to the R lung. HEART AND CARDIOVASCULAR: (-) irregularity; (-) murmur, (-) gallop, (-) rub. ABDOMEN AND GI: Soft; (-) tenderness, (-) guarding; (-) organomegaly; (-) mass ; (-) CVA tenderness. EXTREMITIES: (-) deformity; (-) cellulitis, (-) lymphangitis; (-) subungual hemorrhage; (-) edema. NEURO AND PSYCH: Mental status as above; (-) focal findings. Vital Signs Temp Pulse Resp BP Pulse Ox 12/13/17 20:08 98.7 F 96 H 18 155/90 H 97 Medical Decision Making ED Course and Treatment: 12/13/17 21:07 CXR done on 12/12/18 showed +infiltrate to the RML and RLL. Labs reviewed : normal wbc. Based on history, exam and diagnostic results plan will be for inpatient admission. Case d/w Dr. Polk, request for admission, rocephin and zithromax IV for antibiotics. - Lab Interpretations Lab Results: 12/13/17 20:20 12/13/17 20:20 Lab Results 12/13/17 20:20: Sodium 140, Potassium 3.8, Chloride 98, Carbon Dioxide 30, Anion Gap 17, BUN 14, Creatinine 0.6 L, Est GFR ( Amer) > 60, Est GFR ( Non-Af Amer) > 60, Random Glucose 208 H, Calcium 10.0, Total Bilirubin 0.5, AST 26, ALT 30, Alkaline Phosphatase 100, Total Protein 7.6, Albumin 3.9, Globulin 3.7, Albumin/Globulin Ratio 1.1 12/13/17 20:20: WBC 6.6 D, RBC 4.64, Hgb 12.8, Hct 38.4, MCV 82.8, MCH 27.6, MCHC 33.3, RDW 14.7 H, Plt Count 286, MPV 9.3, Gran % 60.1, Lymph % (Auto) 25.8 , [place] % (Auto) 7.5 H, Eos % (Auto) 6.3 H, Baso % (Auto) 0.3, Gran # 3.98, Lymph # (Auto) 1.7, [place] # (Auto) 0.5, Eos # (Auto) 0.4, Baso # (Auto) 0.02 - RAD Interpretation Radiology Orders: 12/13/17 19:58 CHEST TWO VIEWS (PA/LAT) [RAD] Stat - Medication Orders Current Medication Orders: Levofloxacin/Dextrose (Levaquin 750mg) 750 mg in 150 mls @ 100 mls/hr IVPB STAT STA PRN Reason: Protocol Stop: 12/13/17 21:30 - PA / DIVISIONAL MERCHANDISING MANAGER / Resident Statement / has reviewed & agrees with the documentation as recorded. Disposition/Present on Arrival - Present on Arrival Any Indicators Present on Arrival: Yes History of DVT/PE: No History of Uncontrolled Diabetes: Yes Urinary Catheter: No History of Decub. Ulcer: No History Surgical Site Infection Following: None - Disposition Have Diagnosis and Disposition been Completed?: Yes Diagnosis: Pneumonia Disposition: HOSPITALIZED Disposition Time: 20:45 Patient Plan: Admission Patient Problems: Current Active Problems Problem Status Onset Pneumonia Acute Condition: STABLE Forms: [employer] (Italian)
[2017-12-13 20:54] LABS: ALB/GLOB RATIO 1.1 (1.1-1.8); ALBUMIN 3.9 g/dL (3.0-4.8); ALT/SGPT 30 U/L (7-56); AST/SGOT 26 U/L (14-36); BLOOD UREA NITROGEN 14 mg/dL (7-21); GFR AFRICAN-AMERICAN > 60; GFR NON-AFRICAN AMERICAN > 60
[2017-12-13] MEDS ORDERED: Azithromycin 500MG/NS 250ml 500 MG/250 ML BAG IVPB STA (21:12)
[2017-12-13] MEDS ORDERED: cefTRIAXone 1 gm 1 GM/100 ML BAG IVPB STA (21:12)
[2017-12-14] MEDS ORDERED: Influenza Vaccine 60 mcg/0.5 mL SYR (4YR UP) IM ONE (04:18)
[2017-12-14] MEDS ORDERED: Pneumococcal 23-Valent Vaccine IM ONE (04:18)
[2017-12-14] MEDS ORDERED: Albuterol-Ipratrop 3 mg / 0.5 (3 ml) UD IH PRN (06:55)
[2017-12-14] MEDS: Budesonide 0.5 mg/2 ml Inhal Susp UD IH SCH ×2 (07:40→19:59)
[2017-12-14] MEDS: Albuterol-Ipratrop 3 mg / 0.5 (3 ml) UD IH SCH ×3 (07:40→19:59)
--- NOTE | 2017-12-14 07:40 | CON ---
DATE: <> PULMONARY CONSULTATION REASON FOR CONSULTATION: Pneumonia. REFERRING PHYSICIAN: Dr. Kris Polk. The patient is a 57-year-old female, with past medical history significant for recurrent bronchitis, questionable pneumonia in the past, diabetes mellitus who presents to [facility] with a 2-week history of shortness of breath at rest, dyspnea on exertion, cough, and sputum production. There is no history of chest pain, coughing up of blood, or chest pain - made worse with deep respirations. There is no history of temperatures, chills or infectious exposure. There is no history of night sweats, weight loss or appetite change prior to the above events. No history of leg or calf pains. No history of syncope or diaphoresis. No history of recent travel or trauma. REVIEW OF SYSTEMS: No history of nausea, vomiting or diarrhea. No acute urinary symptoms. No new neurologic or musculoskeletal complaints. Rest of the review of systems negative. ALLERGIES: NO KNOWN ALLERGIES. SOCIAL HISTORY: Negative for tobacco. Negative for alcohol. FAMILY HISTORY No inheritable diseases. HOME MEDICATIONS: Include prednisone, Glucophage, Zestril, Xopenex, Vantin, budesonide. PHYSICAL EXAMINATION GENERAL: The patient appears comfortable this morning. She is not short of breath at rest. VITAL SIGNS: Temperature is 98.1, pulse 88, respirations 18/20, blood pressure 136/82. Oxygen saturation on nasal cannula is 98%. HEENT: Normocephalic, atraumatic. NECK: No JVD. CARDIOVASCULAR: Positive S1, S2. No S3 gallop. LUNGS: Crackles noted at the right lower lobe. Mild bilateral rhonchi and wheezing are also appreciated. EXTREMITIES: No clubbing, cyanosis or edema. Calves are nontender to palpation. GASTROINTESTINAL: Abdomen is soft, nontender and nondistended. Bowel sounds are positive. SKIN: No acute rash. NEUROLOGIC: Exam limited at the present time. PERTINENT LABORATORY DATA: Chest x-ray was done yesterday and reviewed. There are right middle lobe and right lower lobe infiltrates noted. CBC: White count 6.6, hemoglobin 12.8, hematocrit 38.4, platelets of 286,000. Complete metabolic profile: Glucose 28. Rest of the metabolic profile is within normal limits. IMPRESSION 1. Right middle lobe, right lower lobe pneumonia. 2. Acute bronchitis. 3. Acute bronchospasm. 4. Diabetes mellitus. PLAN: The patient presents to [facility] with a two-week history of increasing pulmonary symptoms. As above, I did review the chest x-ray. The chest x-ray shows infiltrates noted in the right middle lobe and right lower lobe areas. May cultures have been ordered, and will analyzed when feasible. I have started the patient on intravenous doxycycline ,as well as intravenous Rocephin. On physical exam, there is [id number] bronchospasm noted. I will start the patient on nebulizer treatments and low-dose intravenous steroids this morning. There is no significant alveolar-arterial gradient. Oxygen saturation on nasal cannula is 98%. The patient does feel better this morning and is clinically improved. Additional pulmonary intervention will be based on the clinical status of the patient. I will discuss the above with Dr. Polk. Thank you very much for this pulmonary consultation. Agustín Matos MD [facility]
--- NOTE | 2017-12-14 08:35 | RAD ---
HISTORY: Pneumonia. COMPARISON: 12/12/2017. TECHNIQUE: Chest PA and lateral FINDINGS: LUNGS: Stable right middle lobe right lower lobe infiltrates. PLEURA: No significant pleural effusion identified. No pneumothorax apparent. CARDIOVASCULAR: Normal. OSSEOUS STRUCTURES: No significant abnormalities. VISUALIZED UPPER ABDOMEN: Normal. OTHER FINDINGS: None. IMPRESSION: Stable and extensive infiltrates right lower lobe of the right middle lobe.
[2017-12-14] MEDS: cefTRIAXone 1 gm 1 GM/100 ML BAG IVPB SCH (09:28)
[2017-12-14] MEDS: MethylPREDNISolone 40 mg Vial IVP SCH ×2 (09:29→21:39)
[2017-12-14] MEDS: Insulin Reg-HIGH-Coverage SC SCH ×3 (12:26→21:40)
--- NOTE | 2017-12-14 17:50 | HP ---
HISTORY OF PRESENT ILLNESS: I know Fabi very well. I have been seeing her in the office for the past 2 to 3 weeks, trying to get her through a bad bronchitis. As it ended up being pneumonia, I had her on cephalosporins. I had her on Levaquin 750 daily for a pneumonia. I examined her as an outpatient as she did not want to go to the hospital. I repeated her chest x-ray on the , which showed worsening right middle and right lower pneumonia. I sent her to the emergency room. She is short of breath. She is coughing, winded, sweats. She is a 57-year-old female who is having a problem with pneumonia for the past 2 to 3 weeks. It has finally gotten worse to the point where I have to put her in the hospital. She had pneumonia back in September and has not gotten better since then. PAST MEDICAL HISTORY: Diabetes, pneumonia, hypertension, and anxiety. She had a tubal ligation. FAMILY HISTORY: There are hypertension and diabetes in the family. SOCIAL HISTORY: Never smoked. No alcohol. No drugs. ALLERGIES: NO KNOWN DRUG ALLERGIES. MEDICATIONS: She is on metformin. She is on lisinopril. She was on Levaquin recently with cough medicines, Promethazine DM. She got worse. REVIEW OF SYSTEMS: No acute vision or hearing changes. No sore throat. There is coughing with congestion, shortness of breath, and sweating when she does too much. No chest pain. No abdominal pain. No nausea, vomiting, constipation, or diarrhea. No extremity pain. No back pain. No skin rashes or ulcers. PHYSICAL EXAMINATION: VITAL SIGNS: She has a 98.7 temperature, 96 pulse, 18 respiratory rate, 155/90 blood pressure, and 97% O2 saturation on room air. HEENT: Head is normocephalic, atraumatic. Extraocular muscles are intact. Pupils are equal and reactive to light and accommodation. Throat is dry. NECK: Supple. HEART: Regular rate. LUNGS: Decreased breath sounds, especially on the right side. Lungs on the left clear to auscultation. ABDOMEN: Soft, nontender. Positive bowel sounds. No guarding, no rebound, or CVA tenderness. EXTREMITIES: No edema. SKIN: From what I could tell is warm and dry. No apparent rashes or ulcers. THYROID: Midline. No palpable or appreciable lymphadenopathy. LABORATORY DATA: She had multiple tests done. She has a chest x-ray showing stable and extensive infiltrates, right lower lobe and the right middle lobe extensive infiltrates. She has 140 sodium, potassium 3.8. BUN 14, creatinine 0.6. GFR is greater than 60. Sugar is 143 and 208. Calcium is 10. Total bili is 0.5, AST is 26, ALT is 30, alkaline phosphatase 100. Total protein 7.6, albumin is 3.9. White count is 6.6, hemoglobin 12.8, hematocrit 37.4, and platelets of 286. She will have consults with Pulmonary and they gave oxygen, physical therapy, and IV antibiotics and will be helpful in getting her lungs better. The patient with worsening right middle and right lower lobe pneumonia. She is also a diabetic. Kris Polk DO
[2017-12-14] MEDS: Promethazine DM 6.25 mg-15 mg/5 ml Syrup PO PRN (21:43)
[2017-12-15] MEDS: Albuterol-Ipratrop 3 mg / 0.5 (3 ml) UD IH SCH ×4 (04:18→20:45)
[2017-12-15 07:39] LABS: HEMOGLOBIN 12.1 g/dL (12.0-16.0); MEAN CELL VOLUME 81.5 fl (80.0-105.0); MEAN CORPUSCULAR HEMOGLOBIN 26.9 pg (25.0-35.0); MEAN CORPUSCULAR HGB CONC 33.1 g/dl (31.0-37.0); RBC 4.49 10^6/uL (3.5-6.1); RED CELL DISTRIBUTION WIDTH 14.7 % (11.5-14.5); WHITE BLOOD COUNT 6.5 10^3/ul (4.5-11.0)
[2017-12-15] MEDS: Budesonide 0.5 mg/2 ml Inhal Susp UD IH SCH ×2 (07:46→20:45)
[2017-12-15 07:54] LABS: ALBUMIN 3.6 g/dL (3.0-4.8); ALT/SGPT 27 U/L (7-56); AST/SGOT 21 U/L (14-36); BLOOD UREA NITROGEN 11 mg/dL (7-21); CALCIUM 10.3 mg/dL (8.4-10.5); GFR AFRICAN-AMERICAN > 60; GFR NON-AFRICAN AMERICAN > 60
--- NOTE | 2017-12-15 08:15 | PN ---
DATE: 12/15/2017 PULMONARY NOTE SUBJECTIVE: The patient appears very comfortable this morning. She is not short of breath at rest. PHYSICAL EXAMINATION VITAL SIGNS: (Last noted in the computer): Temperature 98.0, pulse 102, respirations 18, blood pressure 128/76. Oxygen saturation on nasal cannula is 97%. HEENT: Normocephalic, atraumatic. No JVD. CARDIOVASCULAR: Positive S1, S2. No S3 gallop. LUNGS: Less crackles noted at the right lower lobe. Less rhonchi. Less wheezing. EXTREMITIES: No clubbing, cyanosis or edema. Calves are nontender to palpation. GI: Abdomen is soft, nontender and nondistended. Bowel sounds are positive. SKIN: No acute rash. NEUROLOGIC: Limited at the present time. IMPRESSION: 1. Right middle lobe, right lower lobe pneumonia. 2. Acute bronchitis. 3. Acute bronchospasm. 4. Diabetes mellitus. PLAN: The patient appears much more comfortable this morning. She is not short of breath at rest. She is still coughing, but less. She does state to feeling much better overall. On physical exam, her bronchospasm is certainly less. In addition, there is no significant alveolar-arterial gradient. I will continue the current nebulizer treatments and low-dose intravenous steroids for now. The patient remains on antibiotic therapy. Repeat a.m. labs are pending. There are no temperatures noted. Clinical status of the patient is definitely improved - compared to the initial presentation. I will discuss the above with Dr. Polk. Agustín Matos MD [facility]
[2017-12-15] MEDS: Insulin Reg-HIGH-Coverage SC SCH ×4 (08:38→21:44)
[2017-12-15] MEDS: cefTRIAXone 1 gm 1 GM/100 ML BAG IVPB SCH (10:14)
[2017-12-15] MEDS: MethylPREDNISolone 40 mg Vial IVP SCH ×2 (10:15→21:40)
[2017-12-15] MEDS: Promethazine DM 6.25 mg-15 mg/5 ml Syrup PO PRN ×2 (10:43→19:49)
--- NOTE | 2017-12-15 14:51 | PN ---
DATE: SUBJECTIVE: I saw her resting comfortably in bed. She looks better on her face. I think she might have gotten a little bit of sleep last night. She is still coughing, asking for breathing treatments and coughing, bringing up some phlegm. Definitely to me, clinically, looking at her, she is improving. MEDICATIONS: She is on doxycycline IV, DuoNebs, metformin, insulin, Phenergan DM, Pulmicort, Rocephin, Solu-Medrol is down to 30 IV every 12, Zestril and IV azithromycin. PHYSICAL EXAMINATION: VITAL SIGNS: She has 98 temp, 102 pulse, 128/76 blood pressure, 18 respiratory rate, 97% O2 sat on nasal cannula 2 L. HEENT: Head is atraumatic, normocephalic. Throat is moist. NECK: Supple. HEART: Regular rate. LUNGS: The right side has still got some decreased breath sounds, but clear and less congestion, but there is still some when she coughs hard. ABDOMEN: Soft. EXTREMITIES: No edema. LABORATORY DATA: She has a 141 sodium, potassium 3.8, BUN is 11, creatinine 0.5, GFR is greater than 60, sugar is 165, calcium is 10.3, total bili is 0.3, AST is 21, ALT is 27, alk phos 85, total protein 7, albumin 3.6. White count 6.5, hemoglobin 12.1, hematocrit 36.6, platelets are 302. ASSESSMENT AND PLAN: She is being seen by Pulmonary. I believe she needs another day or two more of IV antibiotics. I have to repeat a chest x-ray. I asked her to walk in the room, get out of the bed everyday. I am also going to get her incentive spirometry. We will check her labs tomorrow. I think she is starting to improve, which is great and hopefully we can get rid of this pneumonia in the next couple of days. She has got a right middle and right lower lobe pneumonia. Kris Polk DO
[2017-12-16] MEDS: Albuterol-Ipratrop 3 mg / 0.5 (3 ml) UD IH SCH ×4 (03:43→22:51)
[2017-12-16 07:07] LABS: HEMOGLOBIN 12.1 g/dL (12.0-16.0); MEAN CELL VOLUME 81.7 fl (80.0-105.0); MEAN CORPUSCULAR HEMOGLOBIN 26.9 pg (25.0-35.0); RBC 4.49 10^6/uL (3.5-6.1); RED CELL DISTRIBUTION WIDTH 14.7 % (11.5-14.5); WHITE BLOOD COUNT 8.3 10^3/ul (4.5-11.0)
[2017-12-16 07:27] LABS: ALB/GLOB RATIO 1.1 (1.1-1.8); ALBUMIN 3.6 g/dL (3.0-4.8); ALT/SGPT 28 U/L (7-56); AST/SGOT 20 U/L (14-36); BLOOD UREA NITROGEN 14 mg/dL (7-21); CALCIUM 10.4 mg/dL (8.4-10.5); GFR AFRICAN-AMERICAN > 60; GFR NON-AFRICAN AMERICAN > 60
[2017-12-16] MEDS: Budesonide 0.5 mg/2 ml Inhal Susp UD IH SCH ×2 (08:02→22:51)
[2017-12-16] MEDS: Insulin Reg-HIGH-Coverage SC SCH ×4 (08:49→22:17)
[2017-12-16] MEDS: MethylPREDNISolone 40 mg Vial IVP SCH ×2 (10:02→21:44)
[2017-12-16] MEDS: Promethazine DM 6.25 mg-15 mg/5 ml Syrup PO PRN (10:02)
[2017-12-16] MEDS: cefTRIAXone 1 gm 1 GM/100 ML BAG IVPB SCH (10:05)
--- NOTE | 2017-12-16 14:32 | PN ---
DATE: PULMONARY PROGRESS NOTE SUBJECTIVE: The patient was seen and examined at bedside. She is still coughing a lot, producing mucopurulent sputum, but overall feeling better and she is not in respiratory distress. She oxygen. PHYSICAL EXAMINATION VITAL SIGNS: Temperature is 99, pulse 88, respirations 18, blood pressure is 132/70. HEAD, EARS, NOSE AND THROAT: Within normal limits. NECK: Supple with no jugular vein distention. CHEST: Symmetrical. LUNGS: A few rhonchi, both lung bases; less crackles, less wheezing. EXTREMITIES: No clubbing, cyanosis or edema. GASTROINTESTINAL: Soft and nontender. No organomegaly. SKIN: No acute skin rash. NEUROLOGIC: No focal deficits. LABORATORY DATA: I reviewed today's laboratory data; WBC 8.3, hemoglobin of 12.1. Chemistries are normal except for elevated blood glucose, blood cultures are negative. ASSESSMENT: 1. Right middle lobe and right lower lobe pneumonia. 2. Acute bronchitis. 3. Resolving bronchospasm. 4. Diabetes mellitus. PLAN: The patient appears more comfortable this morning. She is afebrile, but still coughing a lot. She is using supplemental oxygen. She is on Rocephin and doxycycline as well as nebulizer treatment. We will continue all above measures. Wally Kenney MD
--- NOTE | 2017-12-16 18:19 | PN ---
DATE: SUBJECTIVE: I saw her this morning walking in her room. She does not like the cough medicine. She is looking for different cough medicine. I will put her on Tessalon Perles to see if that will help the cough a little bit. Acute short of breath from time to time. She is still eating well, but overall bit better. She is on doxycycline, DuoNeb, metformin, insulin coverage. She has a Phenergan DM, she does not like; Pulmicort; Rocephin IV; Solu-Medrol IV; Tessalon Perles, which is new to help her cough; Zestril; and azithromycin IV. PHYSICAL EXAMINATION: VITAL SIGNS: Temperature 97.5; 80 pulse; 129/94 blood pressure, little bit high, I will discuss that with respiratory rate 20, and O2 sat is 97% on room air. HEENT: Head is atraumatic, normocephalic. HEART: Regular rate. LUNGS: Decreased breath sounds on the right more than the left, decreased congestion. ABDOMEN: Soft. EXTREMITIES: No edema. LABORATORY DATA: She has a 138 sodium, potassium 4.3. BUN 14, creatinine 0.5. GFR is greater than 60. Last blood sugar was 150. Calcium 10.4. Total bili is 0.3, AST is 20, ALT is 28, alk phos 87. Total protein 6.9, albumin is 3.6. White count is 8.3, hemoglobin 12.1, hematocrit 36.7, and platelets of 299. Waiting for Pulmonary to see her today. I just increased the lisinopril to 20 mg, will give her another day before I change that, I will decrease her Solu-Medrol to 20, and I will increase her Zestril to 30 and will see how she does. Patient is here for right middle and right lower lobe pneumonia, also hypertension and diabetes. Kris Polk DO [facility]
[2017-12-17] MEDS: Albuterol-Ipratrop 3 mg / 0.5 (3 ml) UD IH SCH ×3 (03:30→13:30)
[2017-12-17 06:31] LABS: MEAN CELL VOLUME 82.1 fl (80.0-105.0); MEAN CORPUSCULAR HEMOGLOBIN 26.8 pg (25.0-35.0); MEAN CORPUSCULAR HGB CONC 32.6 g/dl (31.0-37.0); MEAN PLATELET VOLUME 9.9 fl (7.0-11.0); RBC 4.48 10^6/uL (3.5-6.1); RED CELL DISTRIBUTION WIDTH 14.9 % (11.5-14.5); WHITE BLOOD COUNT 7.4 10^3/ul (4.5-11.0)
[2017-12-17 07:07] LABS: ALB/GLOB RATIO 1.1 (1.1-1.8); ALBUMIN 3.4 g/dL (3.0-4.8); ALT/SGPT 25 U/L (7-56); AST/SGOT 15 U/L (14-36); BLOOD UREA NITROGEN 17 mg/dL (7-21); GFR AFRICAN-AMERICAN > 60; GFR NON-AFRICAN AMERICAN > 60
[2017-12-17] MEDS: Budesonide 0.5 mg/2 ml Inhal Susp UD IH SCH (08:04)
--- NOTE | 2017-12-17 08:20 | PN ---
DATE: 12/17/2017 PULMONARY NOTE SUBJECTIVE: The patient appears very comfortable this morning. She is not short of breath at rest. PHYSICAL EXAMINATION: VITAL SIGNS: (Last noted in the computer): Temperature is 97.6, pulse 85, respirations 19, blood pressure 140/98. Oxygen saturation on room air is 96%. HEENT: Normocephalic, atraumatic. No JVD. CARDIOVASCULAR: Positive S1, S2. No S3 gallop. LUNGS: Still with crackles/decreased breath sounds at the right base. Much less rhonchi. No wheezing. EXTREMITIES: No clubbing, cyanosis or edema. Calves are nontender to palpation. GI: Abdomen is soft, nontender and nondistended. Bowel sounds are positive. SKIN: No acute rash. NEUROLOGIC: Limited at the present time. IMPRESSION: 1. Right middle lobe, right lower lobe pneumonia. 2. Acute bronchitis. 3. Acute bronchospasm. 4. Diabetes mellitus. PLAN: The patient appears very comfortable this morning. She is not short of breath at rest. She is coughing much less. She does state to feeling much, much better overall. On physical exam, her bronchospasm is certainly less. In addition, the oxygen saturation on room air is now 96%. I will continue with the current nebulizer treatments and low-dose intravenous steroids (decreased yesterday) for now. The patient remains also on antibiotic therapy. There are no temperatures noted. There is no leukocytosis. I will also order a repeat chest x-ray - for the morning - for comparison. The patient appears significantly improved overall. I will discuss the above with Dr. Polk this morning. Agustín Matos MD [facility]
[2017-12-17 08:39] VITALS: TEMP 98
--- NOTE | 2017-12-17 09:12 | PN ---
DATE: SUBJECTIVE: I saw her in her room. She is comfortable. She slept well. Cough is better. Breathing better. She is using an incentive spirometry. She is on doxycycline IV; DuoNebs; metformin; amlodipine, I stopped the 2.5, I made it go to 10 as the blood pressure was still high. Called in Cardiology for evaluating the blood pressure. She is on promethazine. She is on Pulmicort. She is on ceftriaxone. Solu-Medrol is down to 20 IV q. 12. She is on Tessalon, Zestril and Zithromax. PHYSICAL EXAMINATION: VITAL SIGNS: 97.6 temp; 85 pulse; 140/98 blood pressure, so I increased the Norvasc from 2.5 to 10; 19 respiratory rate and 96% O2 sat on room air. HEENT: Head is atraumatic, normocephalic. Throat is moist. NECK: Supple. HEART: Regular rate. LUNGS: Decreased breath sounds especially on the right side, but for the most part clear. Less congestion. ABDOMEN: Soft. EXTREMITIES: No edema. LABORATORY DATA: She has a 7.4 white count, 12 hemoglobin, 36.8 hematocrit with 299 platelets. 139 sodium, potassium 4, BUN 17, creatinine 0.5, GFR is greater than 60, last sugar was 137, calcium is 10, total bili is 0.4, AST is 15, ALT is 25, alk phos 78, total protein 6.5, albumin is 3.4. ASSESSMENT AND PLAN: She is being seen by Pulmonary. I called in Cardiology, increased her Norvasc to 10. She is already on Zestril. We will check her labs tomorrow, see what the chest x-ray shows, see how much better she is getting. She has had a right middle and lower lobe pneumonia with hypertension. Kris Polk DO
[2017-12-17] MEDS: Insulin Reg-HIGH-Coverage SC SCH ×4 (09:48→22:45)
[2017-12-17] MEDS: cefTRIAXone 1 gm 1 GM/100 ML BAG IVPB SCH (09:50)
[2017-12-17] MEDS: MethylPREDNISolone 40 mg Vial IVP SCH ×2 (09:50→21:36)
--- NOTE | 2017-12-17 19:09 | CON ---
DATE: 12/17/2017 CARDIOLOGY CONSULTATION HISTORY OF PRESENT ILLNESS: The patient is a 57-year-old woman who presents with pneumonia. The patient's cardiac risk factors includes hypertension and diabetes mellitus. The patient was found to have mild hypertension in the hospital. Her past medical history is free of cardiac disease. She states her doctors in [place] perform a stress test on her on a yearly basis, which have been unremarkable. She denies chest pain. SOCIAL HISTORY: The patient does not smoke. REVIEW OF SYSTEMS: Fourteen-point review of systems is reviewed. No cardiac symptomatology is noted. PHYSICAL EXAMINATION: VITAL SIGNS: Blood pressure 135/90, heart rates in the 80s. NECK: Negative JVD. LUNGS: Decreased breath sounds in the right base. HEART: Reveals S1, S2. EXTREMITIES: Without edema. LABORATORY DATA: Glucose is 246. Her troponins were not drawn. Hemoglobin is 12. IMPRESSION: 1. Pneumonia. 2. Hypertension. 3. Diabetes mellitus. 4. Right flank pain, which is likely due to her pneumonia. PLAN: Given these findings, patient will continue on IV antibiotics. Her blood pressures are at reasonable control at this time. No evidence for acute cardiac issues. Ronal Rasheed MD
[2017-12-17 20:55] VITALS: PULSE 79
--- NOTE | 2017-12-17 21:17 | CP.PCM.PN ---
Subjective - Date & Time of Evaluation Date of Evaluation: 12/17/17 Time of Evaluation: 21:14 - Subjective Subjective: Patient was seen at bedside. She complains of chest pain, for past 15 minutes, 4/10, no radiation, squeezing type, never had pain like this before. Has no other complaints. Denies sob, nausea, sweating , palpitations. Medical record was reviewed. This 57 year old woman was admitted with sob, cough, RLL PNA. Has pMH of DM, PNA, HTN, anxiety,tubal ligation. Objective - Vital Signs/Intake and Output Vital Signs (last 24 hours): Temp Pulse Resp BP Pulse Ox 98 F 79 20 133/95 H 98 12/17/17 16:00 12/17/17 16:00 12/17/17 16:00 12/17/17 16:00 12/17/17 16:00 - Medications Medications: Current Medications Albuterol/Ipratropium (Duoneb 3 Mg/0.5 Mg (3 Ml) Ud) 3 ml IH [id number] [facility] Last Admin: 12/17/17 13:30 Dose: Not Given Albuterol/Ipratropium (Duoneb 3 Mg/0.5 Mg (3 Ml) Ud) 3 ml IH Q2H PRN PRN Reason: Shortness of Breath Amlodipine Besylate (Norvasc) 10 mg PO DAILY [facility] Last Admin: 12/17/17 09:49 Dose: 10 mg Benzonatate (Tessalon Perles) 100 mg PO BID [facility] Last Admin: 12/17/17 17:44 Dose: 100 mg Budesonide (Pulmicort Respules) 0.5 mg IH [id number] [facility] Last Admin: 12/17/17 08:04 Dose: Not Given Doxycycline Hyclate (Doryx) 100 mg PO Q12 [facility] PRN Reason: Protocol Ceftriaxone Sodium (Rocephin 1 Gram Ivpb) 1 gm in 100 mls @ 100 mls/hr IVPB DAILY [facility] PRN Reason: Protocol Stop: 12/18/17 10:59 Last Admin: 12/17/17 09:50 Dose: 100 mls/hr Insulin Human Regular (Humulin R High) 0 units SC ACHS [facility] PRN Reason: Protocol Last Admin: 12/17/17 17:43 Dose: 2 units Lisinopril (Zestril) 30 mg PO DAILY [facility] Last Admin: 12/17/17 09:52 Dose: 30 mg Metformin HCl (Glucophage) 500 mg PO BID [facility] Last Admin: 12/17/17 17:43 Dose: 500 mg Methylprednisolone (Solu-Medrol) 20 mg IVP Q12 [facility] Last Admin: 12/17/17 09:50 Dose: 20 mg Promethazine HCl/Dextromethorphan (Phenergan Dm Syrup) 5 ml PO Q6H PRN PRN Reason: Cough Last Admin: 12/16/17 10:02 Dose: 5 ml - Labs Labs: 12/17/17 05:00 12/17/17 05:00 Micro Results 12/13/17 20:20 Blood Blood Culture - Preliminary NO GROWTH AFTER 4 DAYS 12/13/17 20:00 Blood Blood Culture - Preliminary NO GROWTH AFTER 4 DAYS Most Recent Lab Values WBC 7.4 10^3/ul (4.5-11.0) 12/17/17 05:00 RBC 4.48 10^6/uL (3.5-6.1) 12/17/17 05:00 Hgb 12.0 g/dL (12.0-16.0) 12/17/17 05:00 Hct 36.8 % (36.0-48.0) 12/17/17 05:00 MCV 82.1 fl (80.0-105.0) 12/17/17 05:00 MCH 26.8 pg (25.0-35.0) 12/17/17 05:00 MCHC 32.6 g/dl (31.0-37.0) 12/17/17 05:00 RDW 14.9 % (11.5-14.5) H 12/17/17 05:00 Plt Count 299 10^3/uL (120.0-450.0) 12/17/17 05:00 MPV 9.9 fl (7.0-11.0) 12/17/17 05:00 Gran % 60.1 % (50.0-68.0) 12/13/17 20:20 Lymph % (Auto) 25.8 % (22.0-35.0) 12/13/17 20:20 Gilmer % (Auto) 7.5 % (1.0-6.0) H 12/13/17 20:20 Eos % (Auto) 6.3 % (1.5-5.0) H 12/13/17 20:20 Baso % (Auto) 0.3 % (0.0-3.0) 12/13/17 20:20 Gran # 3.98 (1.4-6.5) 12/13/17 20:20 Lymph # (Auto) 1.7 (1.2-3.4) 12/13/17 20:20 Gilmer # (Auto) 0.5 (0.1-0.6) 12/13/17 20:20 Eos # (Auto) 0.4 (0.0-0.7) 12/13/17 20:20 Baso # (Auto) 0.02 K/mm3 (0.0-2.0) 12/13/17 20:20 Sodium 139 mmol/L (132-148) 12/17/17 05:00 Potassium 4.0 mmol/L (3.6-5.0) 12/17/17 05:00 Chloride 99 mmol/L (98-107) 12/17/17 05:00 Carbon Dioxide 30 mmol/L (21-33) 12/17/17 05:00 Anion Gap 15 (10-20) 12/17/17 05:00 BUN 17 mg/dL (7-21) 12/17/17 05:00 Creatinine 0.5 mg/dl (0.7-1.2) L 12/17/17 05:00 Est GFR ( Amer) > 60 12/17/17 05:00 Est GFR (Non-Af Amer) > 60 12/17/17 05:00 POC Glucose (mg/dL) 192 mg/dL (65-110) H 12/17/17 16:50 Random Glucose 246 mg/dL (70-110) H 12/17/17 05:00 Calcium 10.0 mg/dL (8.4-10.5) 12/17/17 05:00 Total Bilirubin 0.4 mg/dL (0.2-1.3) 12/17/17 05:00 AST 15 U/L (14-36) 12/17/17 05:00 ALT 25 U/L (7-56) 12/17/17 05:00 Alkaline Phosphatase 78 U/L (38-126) 12/17/17 05:00 Total Protein 6.5 g/dL (5.8-8.3) 12/17/17 05:00 Albumin 3.4 g/dL (3.0-4.8) 12/17/17 05:00 Globulin 3.2 gm/dL 12/17/17 05:00 Albumin/Globulin Ratio 1.1 (1.1-1.8) 12/17/17 05:00 Procalcitonin 0.05 NG/ML (0.19-0.49) L 12/17/17 07:28 - Constitutional Appears: Well, No Acute Distress - Head Exam Head Exam: ATRAUMATIC, NORMAL INSPECTION, NORMOCEPHALIC - Eye Exam Eye Exam: Normal appearance - ENT Exam ENT Exam: Normal External Ear Exam - Neck Exam Neck Exam: Normal Inspection - Respiratory Exam Respiratory Exam: NORMAL BREATHING PATTERN - Cardiovascular Exam Cardiovascular Exam: REGULAR RHYTHM, +S1 (Normal.), +S2 (Normal.). absent: JVD Additional comments: There is tenderness in precordial area. - GI/Abdominal Exam GI & Abdominal Exam: Normal Bowel Sounds. absent: Distended - Rectal Exam Rectal Exam: Deferred - Exam Additional comments: Deferred. - Extremities Exam Extremities Exam: Normal Inspection - Back Exam Back Exam: NORMAL INSPECTION - Neurological Exam Neurological Exam: Alert, Awake, Oriented x3 - Psychiatric Exam Psychiatric exam: Normal Affect, Normal Mood - Skin Skin Exam: Normal Color Assessment and Plan - Assessment and Plan (Free Text) Assessment: Chest pain.-Musculo-skeletal. -R/O cardiac origin. -Possible development of left sided PNA. -Anxiety. PNA-RLL. HTN. DM II. Anxiety. Plan: Naprosyn 550 mg po now. EKG------> NSR. Troponin. Continue present management.
[2017-12-17] MEDS ORDERED: Naproxen 550 mg Tab PO STA (21:24)
[2017-12-18] MEDS: Albuterol-Ipratrop 3 mg / 0.5 (3 ml) UD IH SCH ×3 (02:00→13:30)
[2017-12-18] MEDS: Budesonide 0.5 mg/2 ml Inhal Susp UD IH SCH ×2 (02:01→08:02)
[2017-12-18 06:35] LABS: HEMOGLOBIN 13.1 g/dL (12.0-16.0); MEAN CELL VOLUME 81.7 fl (80.0-105.0); MEAN CORPUSCULAR HEMOGLOBIN 27.2 pg (25.0-35.0); MEAN CORPUSCULAR HGB CONC 33.2 g/dl (31.0-37.0); RBC 4.82 10^6/uL (3.5-6.1); RED CELL DISTRIBUTION WIDTH 14.7 % (11.5-14.5); WHITE BLOOD COUNT 7.1 10^3/ul (4.5-11.0)
[2017-12-18 06:49] LABS: ALB/GLOB RATIO 1.1 (1.1-1.8); ALBUMIN 3.7 g/dL (3.0-4.8); ALT/SGPT 20 U/L (7-56); AST/SGOT 17 U/L (14-36); BLOOD UREA NITROGEN 18 mg/dL (7-21); CALCIUM 10.4 mg/dL (8.4-10.5); GFR AFRICAN-AMERICAN > 60; GFR NON-AFRICAN AMERICAN > 60
[2017-12-18] MEDS: Insulin Reg-HIGH-Coverage SC SCH ×2 (08:37→12:03)
--- NOTE | 2017-12-18 08:56 | PN ---
DATE: 12/18/2017SUBJECTIVE: The patient appears very comfortable this morning. She is not short of breath at rest. PHYSICAL EXAMINATION: VITAL SIGNS: Last temperature recorded is 98, pulse this morning is 80, respirations 18, last blood pressure recorded in the chart is 133/95. Oxygen saturation on room air is 98%. HEENT: Normocephalic, atraumatic. NECK: No JVD. CARDIOVASCULAR: Positive S1, S2. No S3 gallop. LUNGS: Still with crackles/decreased breath sounds at the right base. Very minimal/much less rhonchi. No wheezing. EXTREMITIES: No clubbing, cyanosis or edema. Calves are nontender to palpation. GI: Abdomen is soft, nontender, nondistended. Bowel sounds are positive. SKIN: No acute rash. NEUROLOGIC: Exam limited at the present time. IMPRESSION: 1. Right middle lobe, right lower lobe pneumonia. 2. Acute bronchitis. 3. Acute bronchospasm. 4. Diabetes mellitus. PLAN: The patient appears very comfortable this morning. She is not short of breath at rest. She is not dyspneic on exertion. She states that her cough is "almost gone." She does state to feeling much, much better overall. I did discuss the case with the night nurse at length. I have also discussed the past night events with the patient at length. Apparently, after coughing, the patient did feel a pain under her left breast(??musculoskeletal). The patient was given Naprosyn. EKG was done and reported no significant change. She denies any chest discomfort this morning. Continue cardiac follow up. On physical exam, her bronchospasm continues to resolve. In addition, the oxygen saturation on room air is now 98%. I will continue the current nebulizer treatments and change to oral steroids this morning. The patient remains on antibiotic therapy. There are no temperatures noted. There is no leukocytosis. In addition, the procalcitonin done yesterday was negative. The clinical status of this patient is significantly improved-compared to her initial presentation. However, she will need to be followed closely as an outpatient. The patient is for discharge in the near future. She is well aware that she will need close followup with me as an outpatient. I have also ordered a repeat chest x-ray for this morning. I will check that when feasible. The patient fully agrees with the above plan. I will discuss the above with Dr. Polk. Agustín Matos MD [facility]
[2017-12-18 09:03] VITALS: BP 137/98; RESP 16; O2SAT 97
--- NOTE | 2017-12-18 09:38 | RAD ---
HISTORY: follow up COMPARISON: Chest radiographs 05/16/2018. TECHNIQUE: Chest PA and lateral FINDINGS: LUNGS: There is significant interval improvement in right middle and right lower lobe infiltrates, particularly at the lateral right base. The left lung remains clear. PLEURA: No significant pleural effusion identified. No pneumothorax apparent. CARDIOVASCULAR: Normal. OSSEOUS STRUCTURES: No significant abnormalities. VISUALIZED UPPER ABDOMEN: Normal. OTHER FINDINGS: None. IMPRESSION: Improving right middle and lower lobe infiltrates. Findings reviewed and discussed with Dr. Matos 12/18/2017.
[2017-12-18] MEDS: cefTRIAXone 1 gm 1 GM/100 ML BAG IVPB SCH (09:52)
--- NOTE | 2017-12-18 15:05 | PN ---
DATE: 12/18/2017 CARDIOLOGY FOLLOWUP SUBJECTIVE: The patient's symptoms are much improved. PHYSICAL EXAMINATION: VITAL SIGNS: Blood pressure is 137/98, heart rate is in the 80s. NECK: Negative JVD. LUNGS: Without rales. HEART: Reveals S1, S2. EXTREMITIES: Without edema. LABORATORY DATA: White count is 7.1. Chemistries, glucose is 214. IMPRESSION: 1. Improvement of pneumonia. 2. No evidence for acute coronary syndrome. 3. Diabetes mellitus. 4. Hypertension. RECOMMENDATIONS: From a cardiac perspective, there are no evidence for acute coronary syndrome. The patient can be discharged from a cardiac perspective. Ronal Rasheed MD
--- NOTE | 2017-12-18 19:26 | CARD ---
APPROVED REPORT EKG Measurement Heart [id number] <Conclusion> Normal sinus rhythm Normal ECG
--- NOTE | 2017-12-19 06:47 | DS ---
HISTORY OF PRESENT ILLNESS: I saw her sitting up in bed, resting comfortably. She is coughing up some white phlegm, it is not yellow-green anymore. She wants to go home today. We are awaiting for a chest x-ray to happen and make sure that is improving. MEDICATIONS: She is on Anaprox, Diovan, Doryx, DuoNeb, metformin, insulin, Januvia, Phenergan, prednisone down to 30, Pulmicort, Rocephin, Tessalon Perles and Zithromax. PHYSICAL EXAMINATION: VITAL SIGNS: She has a 98 temperature, 79 pulse, 133/95 blood pressure, I changed her from Zestril to Diovan; respiratory rate is 20, O2 sat is 98. HEENT: Head is atraumatic, normocephalic. HEART: Regular rate. LUNGS: Decreased breath sounds. Right side occasional congestion when she coughs hard. ABDOMEN: Soft. EXTREMITIES: No edema. LABORATORY DATA: She has a 139 sodium, potassium 4.3, BUN is 18, creatinine 0.6, GFR is greater than 60, sugar is 177, calcium is 10.4, total bili is 0.5, AST is 17, ALT is 20, alk phos 93, total protein 7.1, albumin is 3.7. White count 7.1, hemoglobin 13.1, hematocrit 39.4, platelets of 314. ASSESSMENT AND PLAN: I am going to discuss with Pulmonary about discharging today if the chest x-ray has improved. Keep her on the same medication, change the IV antibiotics to p.o. I will discuss that with Pulmonary also. He will be following up with her in the outpatient, will be on steroids with decreasing number, watching her blood sugars and blood pressure, and I will see her in the office. Kris Polk DO
== END 2017-12-18 14:17 | disposition home or self-care (01) | DRG 195 ==
LOC: ED 18:17 → ERH 21:10 → 3RNO 22:36
PROVIDERS: ADMIT Family Medicine; ATTEND Family Medicine
DX: J18.9 Pneumonia, unspecified organism (principal); J20.9 Acute bronchitis, unspecified; E11.9 Type 2 diabetes mellitus without complications; F41.9 Anxiety disorder, unspecified; I10 Essential (primary) hypertension; Z82.49 Family history of ischemic heart disease and other diseases of the circulatory system; Z83.3 Family history of diabetes mellitus; Z87.01 Personal history of pneumonia (recurrent); Z98.51 Tubal ligation status; Z79.84 Long term (current) use of oral hypoglycemic drugs

== ENCOUNTER 2018-01-09 12:40 | Emergency (ER) | payer MEDICARE ==
[2018-01-09 12:57] VITALS: RESP 18
--- NOTE | 2018-01-09 13:36 | ED PDOC ---
Arrival/HPI - General Chief Complaint: Shortness Of Breath Time Seen by Provider: 01/09/18 13:13 Historian: Patient - History of Present Illness Narrative History of Present Illness (Text): 01/09/18 13:32 57yo female with PMhx of hypertension and Diabetes who was referred for chest CT. Patient's daughter by the bedside states patient was recently treated for Pneumonia and currently still on antibiotics. states patient is still having cough, SOB and chest pain with cough. She saw her PMD and was referred for Chest CT. She denies fever, nausea, vomiting, diaphoresis, LE edema, calf pain, sick contact, any other complaint. Past Medical History - Provider Review Nursing Documentation Reviewed: Yes - Infectious Disease Hx of Infectious Diseases: None - Cardiac Hx Hypertension: Yes - Pulmonary Hx Asthma: Yes Hx Pneumonia: Yes - Neurological Hx Neurological Disorder: No - HEENT Hx HEENT Disorder: No - Renal Hx Renal Disorder: No - Endocrine/Metabolic Hx Diabetes Mellitus Type 2: Yes - Hematological/Oncological Hx Blood Disorders: No - Integumentary Hx Dermatological Disorder: No - Musculoskeletal/Rheumatological Hx Arthritis: Yes (RA) Hx Falls: No - Gastrointestinal Hx Gastrointestinal Disorders: No - Genitourinary/Gynecological Other/Comment: TUBAL LIGATION - Psychiatric Hx Anxiety: Yes Hx Substance Use: No - Surgical History Hx Tubal Ligation: Yes - Anesthesia Hx Anesthesia: Yes Hx Anesthesia Reactions: No Hx Malignant Hyperthermia: No - Suicidal Assessment Feels Threatened In Home Enviroment: No Family/Social History - Physician Review Nursing Documentation Reviewed: Yes Family/Social History: Unknown Family HX Smoking Status: Never Smoked Hx Alcohol Use: No Hx Substance Use: No Allergies/Home Meds Allergies/Adverse Reactions: Allergies No Known Allergies Allergy (Verified 10/11/17 12:23) Home Medications: Home Meds Medication Instructions Recorded Confirmed Cefuroxime Axetil [Cefuroxime] 1 tab PO DAILY 01/09/18 01/09/18 Doxycycline Hyclate [Doryx] 1 tab PO DAILY 01/09/18 01/09/18 Fluticasone/Salmeterol [Advair 1 puff IH BID 01/09/18 01/09/18 250-50 Diskus] Levofloxacin [Levaquin] 1 tab PO DAILY 01/09/18 01/09/18 Losartan [Cozaar] 1 tab PO DAILY 01/09/18 01/09/18 Multivitamin [Honey Bears] 1 tab PO DAILY 01/09/18 01/09/18 Prednisone [Prednisone] 1 tab PO DAILY 01/09/18 01/09/18 Promethazine DM [Phenergan DM 5 ml PO Q6H PRN 01/09/18 01/09/18 Syrup] amLODIPine [Norvasc] 1 tab PO DAILY 01/09/18 01/09/18 Review of Systems - Physician Review All systems were reviewed & negative as marked: Yes - Review of Systems Constitutional: Normal Eyes: Normal ENT: Normal Respiratory: SOB, Cough Cardiovascular: Normal Gastrointestinal: Normal Genitourinary Female: Normal Musculoskeletal: Normal Skin: Normal Neurological: Normal Endocrine: Normal Hemo/Lymphatic: Normal Psychiatric: Normal Physical Exam Vital Signs Reviewed: Yes Vital Signs Temp Pulse Resp BP Pulse Ox 01/09/18 17:06 98.7 F 86 18 124/71 99 01/09/18 16:38 86 18 124/71 96 01/09/18 15:23 94 H 18 126/79 95 01/09/18 13:14 18 01/09/18 12:57 98.4 F 106 H 18 128/84 95 Temperature: Afebrile Blood Pressure: Normal Pulse: Regular Respiratory Rate: Normal Appearance: Positive for: Well-Appearing, Non-Toxic, Comfortable Pain Distress: None Mental Status: Positive for: Alert and Oriented X 3 - Systems Exam Head: Present: Atraumatic, Normocephalic Pupils: Present: PERRL Extroacular Muscles: Present: EOMI Conjunctiva: Present: Normal Mouth: Present: Moist Mucous Membranes Neck: Present: Normal Range of Motion Respiratory/Chest: Present: Clear to Auscultation, Good Air Exchange. No: Respiratory Distress, Accessory Muscle Use, Wheezes, Decreased Breath Sounds, Rales, Retracting, Rhonchi, Tachypneic Cardiovascular: Present: Regular Rate and Rhythm, Normal S1, S2. No: Murmurs Abdomen: No: Tenderness, Distention, Peritoneal Signs Back: Present: Normal Inspection Upper Extremity: Present: Normal Inspection. No: Cyanosis, Edema Lower Extremity: Present: Normal Inspection. No: Edema Neurological: Present: GCS=15, CN II-XII Intact, Speech Normal Skin: Present: Warm, Dry, Normal Color. No: Rashes Psychiatric: Present: Alert, Oriented x 3, Normal Insight, Normal Concentration Medical Decision Making ED Course and Treatment: 01/09/18 19:53 Case was ROSA M Polk on pt's arrival in ED. He stated that he saw pt yesterday in his office and Pt have appointment tomorrow with Dr. Matos. Notes that pt is currently on Levaquin, antitussive, Prednisone and albuterol. He referred pt for chest CT. Pt signed out AMA, the daughter states she have somewhere to go. she understood that they could be a significant finding in the CT that can cause , disability or worsening symptoms. She expressed understanding of these risk and still signed out AMA. CT result reported after pt left ED. Result was ROSA M Polk and he requested a copy of the result faxed to his office and it was. Result was also ROSA M Matos and he states he have appointment with pt tomorrow and will f/u with CT findings. - RAD Interpretation Radiology Orders: 01/09/18 13:28 CHEST W/O CONTRAST [CT] Stat Disposition/Present on Arrival - Present on Arrival Any Indicators Present on Arrival: No History of DVT/PE: No History of Uncontrolled Diabetes: No Urinary Catheter: No History of Decub. Ulcer: No History Surgical Site Infection Following: None - Disposition Have Diagnosis and Disposition been Completed?: Yes Diagnosis: Cough, Lung mass, Pneumonia Disposition: AGAINST MEDICAL ADVICE Disposition Time: 16:30 Condition: STABLE Referrals: Kris Polk DO [Primary Care Provider] - Follow up with primary Forms: [employer] ([employer])
[2018-01-09 16:38] VITALS: BP 124/71; PULSE 86
[2018-01-09 17:08] VITALS: TEMP 98.7; O2SAT 99
--- NOTE | 2018-01-09 17:15 | CT ---
PROCEDURE: CT Chest without contrast HISTORY: SOB/cough COMPARISON: Comparison is made to the previous multiple chest x-rays. TECHNIQUE: Contiguous axial images were obtained through the chest without intravenous contrast enhancement. Sagittal and coronal reconstructions were performed. Radiation dose (DLP): 130.78 mGy-cm. This CT exam was performed using one or more of the following dose reduction techniques: Automated exposure control, adjustment of the mA and/or kV according to patient size, and/or use of iterative reconstruction technique. FINDINGS: LUNGS: There is large consolidation involving the right middle lobe right lower lobe and lower portion of the right upper lobe and extending to the right hilum. Findings suspicious for central mass and post obstruction pneumonia and/or atelectasis. There are reticular and nodular opacities at the right upper lobe which may represent local metastasis and lymphangitic carcinomatosis. There is moderate to severe narrowing in the right upper lobe bronchus right bronchus intermedius and right lower lobe bronchus noted. There is no evidence of acute pathology or suspicious mass in the left lung. MEDIASTINUM: Unremarkable thoracic aorta. No aneurysm. The heart is mildly enlarged. There is a small pericardial effusion noted. Main pulmonary artery is mildly enlarged. There are right mediastinal and right hilar large lymphadenopathy noted. PLEURA: There is moderate right pleural effusion. BONES: No evidence of destructive bony lesion. There are old fracture at the posterior aspect of the bilateral 5th 6 ribs. UPPER ABDOMEN: No evidence of mass lesion in the visualized portion of the upper abdomen. The adrenals glands are not fully covered in this study. And assessment of the liver is limited without IV contrast administration. OTHER FINDINGS: None. IMPRESSION: Findings suspicious for central large mass lesion in the right lung associated with partial collapse and consolidation of the right lower lobe right middle lobe and small opacity at the inferior aspect of the right upper lobe. The possibility of malignant neoplasm should be considered. Post obstruction pneumonia and atelectasis is also considered. Reticulonodular opacities at the right upper lobe suspicious for local metastasis and lymphangitic carcinomatosis. Right mediastinal and right hilar lymphadenopathy also suspicious for metastasis. Further assessment by enhanced CT or PET-CT is recommended. Moderate size right pleural effusion. End of dictation
--- NOTE | 2018-01-09 18:23 | CARD ---
APPROVED REPORT EKG Measurement Heart [id number] [place] [id number] [id number] <Conclusion> Normal sinus rhythm Normal ECG
== END 2018-01-09 17:06 | disposition left against medical advice (07) ==
LOC: ED 12:40
DX: J18.9 Pneumonia, unspecified organism (principal); R91.8 Other nonspecific abnormal finding of lung field; R05 Cough; I10 Essential (primary) hypertension